=== PATIENT | male | born 1970 | race Caucasian/White ===

== ENCOUNTER 2018-08-17 13:02 | Inpatient (IN) | payer OTHER ==
[2018-08-17 13:40] VITALS: BMI 32.1
--- NOTE | 2018-08-17 15:50 | HP ---
COWS - Scale Resting Pulse: 0= [place] 80 or Below Sweatin= Chills/Flushing Restless Observation: 1= Difficult to Sit Still Pupil Size: 1= Pupils >than Normal Bone or Joint Aches: 2= Severe Diffuse Aches Runny Nose/ Eye Tearin= Runny Nose/Eyes GI Upset > 30mins: 2= Nausea/Diarrhea Tremor Observation: 2= Slight Tremor Visible Yawning Observation: 1= 1-2x During Session Anxiety or Irritability: 2=Irritable/Anxious Goose Flesh Skin: 0=Smooth Skin COWS Score: 14 CIWA Score Nausea/Vomitin Muscle Tremors: 2 Anxiety: 2 Agitation: 2 Paroxysmal Sweats: 1-Minimal Palms Moist Orientation: 0-Oriented Tacttile Disturbances: 1-Very Mild Itch/Numbness Auditory Disturbances: 1-Very Mild Visual Disturbances: 0-None Headache: 2-Mild CIWA-Ar Total Score: 13 - Admission Criteria [facility] Guidelines: Admission for Medically Managed Detox: Requires at least one of the followin. CIWA greater than 12 2. Seizures within the past 24 hours 3. Delirium tremens within the past 24 hours 4. Hallucinations within the past 24 hours 5. Acute intervention needed for co occurring medical disorder 6. Acute intervention needed for co occurring psychiatric disorder 7. Severe withdrawal that cannot be handled at a lower level of care (continued vomiting, continued diarrhea, abnormal vital signs) requiring intravenous medication and/or fluids 8. Admission ROS [facility] Chief Complaint: i need help for stoping street methadone,alcohol and xanax,i did not want to Allergies/Adverse Reactions: Allergies Allergy/AdvReac Type Severity Reaction Status Date / Time No Known Allergies Allergy Verified 08/17/18 15:23 History of Present Illness: this 48 years old male with street methadone,xanax and alcohol dependence, seeking detox,withdrawal symptom,last detox 2016 ,did not recall the facility history of old mi in 2013 on baby aspirin history of hypertension and hypercholesterolemia ,arthritis , low back pain herniated disc kidney stones fracture of left 5th finger ,s/p surgery,flexion deformity left 5th finger plan to go to rehab after - Ebola screening Have you traveled outside of the country in the last 21 days: No Have you had contact with anyone from an Ebola affected area: No Have you been sick,other than usual withdrawal symptoms: No Do you have a fever: No - Review of Systems Constitutional: Chills, Malaise, Night Sweats, Changes in sleep, Weakness EENT: reports: Tearing, Nose Congestion Respiratory: reports: No Symptoms reported Cardiac: reports: No Symptoms Reported, Other (old mi in 2013) GI: reports: Diarrhea, Nausea, Vomiting, Abdominal cramping : reports: No Symptoms Reported Musculoskeletal: reports: Back Pain, Joint Pain, Muscle Pain, Joint Stiffness Integumentary: reports: Dryness Neuro: reports: Headache, Tremors Endocrine: reports: No Symptoms Reported Hematology: reports: No Symptoms Reported Psychiatric: reports: No Sypmtoms Reported, Judgement Intact, Mood/Affect Appropiate, Orientated x3 Patient History - Patient Medical History Hx Anemia: No Hx Asthma: No Hx Chronic Obstructive Pulmonary Disease (COPD): No Hx Cancer: No Hx Cardiac Disorders: No Hx Congestive Heart Failure: No Hx Hypertension: Yes (no med) Hx Hypercholesterolemia: Yes Hx Pacemaker: No HX Cerebrovascular Accident: No Hx Seizures: No Hx Dementia: No Hx Diabetes: No Hx Gastrointestinal Disorders: No Hx Liver Disease: No Hx Genitourinary Disorders: No Hx Sexually Transmitted Disorders: No Hx Renal Disease (ESRD): No Hx Thyroid Disease: No Hx Human Immunodeficiency Virus (HIV): No (2017 negative ) Hx Hepatitis C: No Hx Depression: No Hx Suicide Attempt: No Hx Bipolar Disorder: No Hx Schizophrenia: No Other Medical History: no suicidal,no homicidal - Patient Surgical History Past Surgical History: No Hx Neurologic Surgery: No Hx Cataract Extraction: No Hx Cardiac Surgery: No Hx Lung Surgery: No Hx Breast Surgery: No Hx Breast Biopsy: No Hx Abdominal Surgery: No Hx Appendectomy: No Hx Cholecystectomy: No Hx Genitourinary Surgery: No Hx Section: No Hx Orthopedic Surgery: Yes (for fx of left 5th finger with flexion deformity in 2015) Anesthesia Reaction: No - PPD History Previous Implant?: Yes Documented Results: Negative w/o proof Implanted On Prior [facility] Admission?: No PPD to be Administered?: Yes - Smoking Cessation Smoking history: Current every day smoker Have you smoked in the past 12 months: Yes Aproximately how many cigarettes per day: 20 Hx Chewing Tobacco Use: No Initiated information on smoking cessation: Yes 'Breaking Loose' booklet given: 08/17/18 - Substance & Tx. History Hx Alcohol Use: Yes Hx Substance Use: Yes Substance Use Type: Alcohol, Opiates, Tranquilizers - Substances Abused Alprazolam (Xanax) Route: Oral Frequency: Daily Amount used: 22MG Age of first use: 38 Date of Last Use: 08/16/18 Non-Rx Methadone Route: Oral Frequency: 1-2 times per week Amount used: 75MG Age of first use: 43 Date of Last Use: 08/15/18 Alcohol Route: Oral Frequency: 3-6 times per week Amount used: 7-8 beers 5 shots whiskey Age of first use: 15 Date of Last Use: 08/16/18 Family Disease History - Family Disease History Family History: Denies Admission Physical Exam [facility] - Vital Signs Vital Signs: Vital Signs - 24 hr 08/17/18 13:39 Temperature 96.6 F L Pulse Rate 78 Respiratory 18 Rate Blood Pressure 135/73 - Physical General Appearance: Yes: Moderate Distress, Tremorous, Irritable, Sweating, Anxious HEENTM: Yes: Normal ENT Inspection, VASILIY, Pharynx Normal Respiratory: Yes: Lungs Clear, Normal Breath Sounds, No Respiratory Distress Neck: Yes: Within Normal Limits, Supple, Trachea in good position Breast: Yes: Within Normal Limits Cardiology: Yes: Within Normal Limits, Regular Rhythm, Regular Rate, S1, S2 Abdominal: Yes: Within Normal Limits, Normal Bowel Sounds, Non Tender, Flat, Soft Genitourinary: Yes: Within Normal Limits Back: Yes: Muscle Spasm Musculoskeletal: Yes: full range of Motion, Back pain, Joint Stiffness, Muscle Pain Extremities: Yes: Tremors Neurological: Yes: residential glazier II-XII NML intact, Alert, Motor Strength 5/5 Integumentary: Yes: Dry Lymphatic: Yes: Within Normal Limits - Diagnostic (1) Opioid dependence with withdrawal Current Visit: Yes Status: Acute (2) Uncomplicated sedative, hypnotic, or anxiolytic withdrawal Current Visit: Yes Status: Acute (3) Alcohol dependence with uncomplicated withdrawal Current Visit: Yes Status: Acute (4) Nicotine dependence Current Visit: Yes Status: Acute (5) Old ND (myocardial infarction) Current Visit: Yes Status: Acute (6) Kidney stones Current Visit: Yes Status: Acute (7) Arthritis Current Visit: Yes Status: Acute (8) Low back pain Current Visit: Yes Status: Acute (9) Herniated disc Current Visit: Yes Status: Acute Cleared for Admission [facility] - Detox or Rehab [facility] Level of Care: Medically Managed Detox Regimen/Protocol: Methadone/Valium [facility] Breath Alcohol Content Breath Alcohol Content: 0 Urine Drug Screen - Results Drug Screen Negative: No Urine Drug Screen Results: BAR-Barbiturates, BZO-Benzodiazepines, MTD-Methadone
[2018-08-17] MEDS ORDERED: ACETAMINOPHEN 325 MG TABLET (FP) PO PRN (16:21)
[2018-08-17] MEDS ORDERED: MAGNESIUM CITRATE 300 ML BOTTLE PO PRN (16:21)
[2018-08-17] MEDS ORDERED: LOPERAMIDE HCL 2 MG CAPSULE PO PRN (16:21)
[2018-08-17] MEDS ORDERED: hydrOXYzine PAMOATE 25 MG CAPSULE (FP) PO PRN (16:21)
[2018-08-17] MEDS ORDERED: MAG HYDROX/AL HYDROX/SIMETH 30 ML UNIT-DOSE CUP PO PRN (16:21)
[2018-08-17] MEDS ORDERED: MAGNESIUM HYDROX 2400MG/30ML ORAL SUSPENSION 30 ML CUP PO PRN (16:21)
[2018-08-17] MEDS ORDERED: MENTHOL/PHENOL 1 EACH UD MM PRN (16:21)
[2018-08-17] MEDS ORDERED: guaiFENesin/D-METHORPHAN HB 10 ML UNIT-DOSE CUPS PO PRN (16:21)
[2018-08-17] MEDS ORDERED: P-EPHED 60MG/TRIPROLIDI 2.5MG TABLET PO PRN (16:21)
[2018-08-17] MEDS ORDERED: METHADONE HCL 10 MG TABLET (FOR DETOX USE ONLY) PO ONE ×2 (17:00→23:00)
[2018-08-17] MEDS ORDERED: diazePAM 5 MG TABLET PO ONE (17:00)
[2018-08-17] MEDS: NICOTINE 21 MG/24 HOURS TOPICAL PATCH TD SCH (17:27)
[2018-08-17] MEDS: IBUPROFEN 400 MG TABLET (FP) PO PRN (21:07)
[2018-08-17] MEDS: diazePAM 5 MG TABLET PO SCH (22:18)
[2018-08-17] MEDS: THIAMINE HCL 100 MG TABLET (FP) PO SCH (22:18)
[2018-08-17 22:28] LABS: URINE APPEARANCE CLEAR; URINE BILIRUBIN NEGATIVE (<2.0 mg/dL); URINE COLOR YELLOW; URINE GLUCOSE (UA) NEGATIVE (NEGATIVE); URINE KETONE NEGATIVE (NEGATIVE); URINE LEUK ESTERASE NEGATIVE (NEGATIVE); URINE NITRITE NEGATIVE (NEGATIVE); URINE PROTEIN NEGATIVE (NEGATIVE); URINE UROBILINOGEN NEGATIVE mg/dL (0.2-1.0)
[2018-08-17] MEDS: MELATONIN 5 MG TABLETS PO PRN (23:22)
[2018-08-18] MEDS: diazePAM 5 MG TABLET PO SCH ×3 (05:48→22:33)
[2018-08-18] MEDS ORDERED: METHADONE HCL 10 MG TABLET (FOR DETOX USE ONLY) PO SCH (10:00)
[2018-08-18] MEDS: ASPIRIN 81 MG CHEWABLE TABLETS PO SCH (10:06)
[2018-08-18] MEDS: PRENATAL VITAMINS W/ FOLIC ACID TABLET (FP) PO SCH (10:06)
[2018-08-18] MEDS: NICOTINE 21 MG/24 HOURS TOPICAL PATCH TD SCH (10:07)
[2018-08-18 10:44] LABS: HEMATOCRIT 32.2 % (35.4-49); HEMOGLOBIN 9.9 GM/dL (11.7-16.9); MCH 23.4 pg (25.7-33.7); MCHC 30.6 g/dl (32.0-35.9); MEAN CELL VOLUME 76.3 fl (80-96); MEAN PLT VOLUME 8.5 fl (7.5-11.1); PLATELET COUNT 265 K/MM3 (134-434); RBC 4.22 M/mm3 (4.00-5.60); WHITE BLOOD COUNT 4.6 K/mm3 (4.0-10.0)
[2018-08-18 11:34] LABS: ALBUMIN 3.1 g/dl (3.4-5.0); ALK PHOS 157 U/L (45-117); ANION GAP 7 MMOL/L (8-16); BILIRUBIN,TOTAL 0.1 mg/dL (0.2-1); BLOOD UREA NITROGEN 12 mg/dL (7-18); CALCIUM 8.5 mg/dL (8.5-10.1); CHLORIDE 107 mmol/L (98-107); CO2 27 mmol/L (21-32); CREATININE 0.7 mg/dL (0.55-1.3); GLUCOSE,RANDOM 81 mg/dL (74-106); POTASSIUM 3.9 mmol/L (3.5-5.1); SGOT/AST 12 U/L (15-37); SGPT/ALT 19 U/L (13-61); SODIUM 141 mmol/L (136-145); TOT PROT 6.3 g/dl (6.4-8.2)
[2018-08-18] MEDS: diazePAM 5 MG TABLET PO PRN ×2 (14:54→19:26)
--- NOTE | 2018-08-18 15:14 | PN ---
[facility] CIWA - CIWA Score Nausea/Vomitin Muscle Tremors: 4-Moderate,w/Arms Extend Anxiety: 4-Mod. Anxious/Guarded Agitation: 4-Moderately Restless Paroxysmal Sweats: 3 Orientation: 0-Oriented Tacttile Disturbances: 0-None Auditory Disturbances: 0-None Visual Disturbances: 0-None Headache: 0-None Present CIWA-Ar Total Score: 17 [facility] COWS - Scale Resting Pulse: 1= [place] 81-100 Sweatin= Chills/Flushing Restless Observation: 3= Extraneous Movement Pupil Size: 0= Normal to Room Light Bone or Joint Aches: 2= Severe Diffuse Aches Runny Nose/ Eye Tearin= Runny Nose/Eyes GI Upset > 30mins: 3= Vomiting/Diarrhea Tremor Observation of Outstretched Hands: 2= Slight Tremor Visible Yawning Observation: 1= 1-2x During Session Anxiety or Irritability: 2=Irritable/Anxious Goose Flesh Skin: 0=Smooth Skin COWS Score: 17 [facility] Progress Note (SOAP) Subjective: Anxious, restless, interrupted sleep, nausea. Patient requesting to see psychiatrist because his psych meds not helping him to sleep. Objective: 08/18/18 15:13 Last Vital Signs Temp Pulse Resp BP Pulse Ox 99 F 98 H 18 142/84 08/18/18 13:47 08/18/18 13:47 08/18/18 13:47 08/18/18 13:47 Laboratory Tests 08/17/18 08/18/18 08/18/18 22:00 07:00 07:00 WBC 4.6 RBC 4.22 Hgb 9.9 L Hct 32.2 L MCV 76.3 L MCH 23.4 L MCHC 30.6 L RDW 19.0 H Plt Count 265 MPV 8.5 Sodium 141 Potassium 3.9 Chloride 107 Carbon Dioxide 27 Anion Gap 7 L BUN 12 Creatinine 0.7 Creat Clearance w eGFR > 60 Random Glucose 81 Calcium 8.5 Total Bilirubin 0.1 L AST 12 L ALT 19 Alkaline Phosphatase 157 H Total Protein 6.3 L Albumin 3.1 L Urine Color Yellow Urine Appearance Clear Urine pH 5.0 Ur Specific [place] 1.032 Urine Protein Negative Urine Glucose (UA) Negative Urine Ketones Negative Urine Blood Negative Urine Nitrite Negative Urine Bilirubin Negative Urine Urobilinogen Negative Ur Leukocyte Esterase Negative Labs reviewed Assessment: 08/18/18 15:14 Withdrawal symptoms Plan: Continue detox Encouraged PO water intake
[2018-08-18] MEDS: IBUPROFEN 400 MG TABLET (FP) PO PRN ×2 (15:31→22:33)
[2018-08-18] MEDS: THIAMINE HCL 100 MG TABLET (FP) PO SCH (22:32)
[2018-08-19] MEDS: PRENATAL VITAMINS W/ FOLIC ACID TABLET (FP) PO SCH (10:10)
[2018-08-19] MEDS: ASPIRIN 81 MG CHEWABLE TABLETS PO SCH (10:10)
[2018-08-19] MEDS: METHADONE HCL 5 MG TABLET (FOR DETOX USE ONLY) PO SCH (10:11)
[2018-08-19] MEDS: diazePAM 5 MG TABLET PO SCH ×2 (10:11→22:30)
[2018-08-19] MEDS: NICOTINE 21 MG/24 HOURS TOPICAL PATCH TD SCH (10:12)
--- NOTE | 2018-08-19 14:03 | PN ---
S CIWA - CIWA Score Nausea/Vomitin Muscle Tremors: 3 Anxiety: 3 Agitation: 3 Paroxysmal Sweats: 3 Orientation: 0-Oriented Tacttile Disturbances: 1-Very Mild Itch/Numbness Auditory Disturbances: 0-None Visual Disturbances: 0-None Headache: 0-None Present CIWA-Ar Total Score: 15 [facility] COWS - Scale Resting Pulse: 1= [place] 81-100 Sweatin= Chills/Flushing Restless Observation: 3= Extraneous Movement Pupil Size: 0= Normal to Room Light Bone or Joint Aches: 2= Severe Diffuse Aches Runny Nose/ Eye Tearin= Runny Nose/Eyes GI Upset > 30mins: 1= Stomach Cramp Tremor Observation of Outstretched Hands: 2= Slight Tremor Visible Yawning Observation: 0= None Anxiety or Irritability: 2=Irritable/Anxious Goose Flesh Skin: 0=Smooth Skin COWS Score: 14 [facility] Progress Note (SOAP) Subjective: Vomiting, agitated, interrupted sleep, anxious Objective: 08/19/18 13:59 Last Vital Signs Temp Pulse Resp BP Pulse Ox 97.4 F L 82 18 141/78 08/19/18 09:16 08/19/18 09:16 08/19/18 09:16 08/19/18 09:16 Elevated b/p, 141/78 (has htn, not on med) Laboratory Tests 08/17/18 08/18/18 08/18/18 22:00 07:00 07:00 WBC 4.6 RBC 4.22 Hgb 9.9 L Hct 32.2 L MCV 76.3 L MCH 23.4 L MCHC 30.6 L RDW 19.0 H Plt Count 265 MPV 8.5 Sodium 141 Potassium 3.9 Chloride 107 Carbon Dioxide 27 Anion Gap 7 L BUN 12 Creatinine 0.7 Creat Clearance w eGFR > 60 Random Glucose 81 Calcium 8.5 Total Bilirubin 0.1 L AST 12 L ALT 19 Alkaline Phosphatase 157 H Total Protein 6.3 L Albumin 3.1 L Urine Color Yellow Urine Appearance Clear Urine pH 5.0 Ur Specific [place] 1.032 Urine Protein Negative Urine Glucose (UA) Negative Urine Ketones Negative Urine Blood Negative Urine Nitrite Negative Urine Bilirubin Negative Urine Urobilinogen Negative Ur Leukocyte Esterase Negative RPR Titer 08/18/18 07:00 WBC RBC Hgb Hct MCV MCH MCHC RDW Plt Count MPV Sodium Potassium Chloride Carbon Dioxide Anion Gap BUN Creatinine Creat Clearance w eGFR Random Glucose Calcium Total Bilirubin AST ALT Alkaline Phosphatase Total Protein Albumin Urine Color Urine Appearance Urine pH Ur Specific [place] Urine Protein Urine Glucose (UA) Urine Ketones Urine Blood Urine Nitrite Urine Bilirubin Urine Urobilinogen Ur Leukocyte Esterase RPR Titer Nonreactive Labs reviewed Assessment: 08/19/18 14:01 Withdrawal symptoms Noted with elevated b/p, has htn Plan: Continue detox Encouraged PO water intake HTN: start clonidine 0.1mg PO q8hr prn if b/p > 140/90
[2018-08-19] MEDS ORDERED: cloNIDine HCL 0.1 MG TABLET PO PRN (14:06)
[2018-08-19] MEDS: THIAMINE HCL 100 MG TABLET (FP) PO SCH (22:30)
[2018-08-19] MEDS: IBUPROFEN 400 MG TABLET (FP) PO PRN (22:30)
[2018-08-19] MEDS: MELATONIN 5 MG TABLETS PO PRN (22:31)
[2018-08-20] MEDS ORDERED: ACETAMINOPHEN/CAFFEINE/BUTALBITAL 1 TAB PO PRN ×2 (09:35→09:38)
[2018-08-20] MEDS ORDERED: ACETAMINOPHEN 325 MG TABLET (FP) PO PRN (10:05)
[2018-08-20] MEDS: diazePAM 5 MG TABLET PO SCH ×2 (10:40→23:00)
[2018-08-20] MEDS: METHADONE HCL 5 MG TABLET (FOR DETOX USE ONLY) PO SCH (10:40)
[2018-08-20] MEDS: PRENATAL VITAMINS W/ FOLIC ACID TABLET (FP) PO SCH ×2 (10:40→10:43)
[2018-08-20] MEDS: ASPIRIN 81 MG CHEWABLE TABLETS PO SCH ×2 (10:41→10:42)
[2018-08-20] MEDS: NICOTINE 21 MG/24 HOURS TOPICAL PATCH TD SCH (10:42)
--- NOTE | 2018-08-20 13:30 | PN ---
[facility] Progress Note Note: PATIENT C/O MIGRAINE HEADACHES, ANXIETY AND RESTLESSNESS. Vital Signs Temperature 96.2 F L 08/20/18 06:25 Pulse Rate 65 08/20/18 06:25 Respiratory Rate 18 08/20/18 06:25 Blood Pressure 119/68 08/20/18 06:25 O2 Sat by Pulse Oximetry (%) Laboratory Tests 08/17/18 08/18/18 08/18/18 22:00 07:00 07:00 WBC 4.6 RBC 4.22 Hgb 9.9 L Hct 32.2 L MCV 76.3 L MCH 23.4 L MCHC 30.6 L RDW 19.0 H Plt Count 265 MPV 8.5 Sodium 141 Potassium 3.9 Chloride 107 Carbon Dioxide 27 Anion Gap 7 L BUN 12 Creatinine 0.7 Creat Clearance w eGFR > 60 Random Glucose 81 Calcium 8.5 Total Bilirubin 0.1 L AST 12 L ALT 19 Alkaline Phosphatase 157 H Total Protein 6.3 L Albumin 3.1 L Urine Color Yellow Urine Appearance Clear Urine pH 5.0 Ur Specific [place] 1.032 Urine Protein Negative Urine Glucose (UA) Negative Urine Ketones Negative Urine Blood Negative Urine Nitrite Negative Urine Bilirubin Negative Urine Urobilinogen Negative Ur Leukocyte Esterase Negative RPR Titer 08/18/18 07:00 WBC RBC Hgb Hct MCV MCH MCHC RDW Plt Count MPV Sodium Potassium Chloride Carbon Dioxide Anion Gap BUN Creatinine Creat Clearance w eGFR Random Glucose Calcium Total Bilirubin AST ALT Alkaline Phosphatase Total Protein Albumin Urine Color Urine Appearance Urine pH Ur Specific [place] Urine Protein Urine Glucose (UA) Urine Ketones Urine Blood Urine Nitrite Urine Bilirubin Urine Urobilinogen Ur Leukocyte Esterase RPR Titer Nonreactive PE: ALERT AND ORIENTED X 3 SKIN WARM AND DRY EXT NO TREMORS, FULL ROM AMB AD GEOVANNA ANXIOUS AND RESTLESS A/P WITHDRAWAL SX CONTINUE DETOX ENCOURAGE FLUIDS PATIENT EXTERNAL MED HX SHOW GABAPENTIN AND FIORCET WHICH PT STATES HE GETS FOR MIGRAINES GABAPENTIN ORDERED CONTINUE TO MONITOR
[2018-08-20] MEDS: GABAPENTIN 300 MG CAPSULE (FP) PO SCH ×2 (15:21→23:00)
[2018-08-20] MEDS: THIAMINE HCL 100 MG TABLET (FP) PO SCH (23:00)
[2018-08-21 06:36] VITALS: BP 120/68; PULSE 60; TEMP 97.1
[2018-08-21] MEDS: GABAPENTIN 300 MG CAPSULE (FP) PO SCH (07:13)
[2018-08-21] MEDS ORDERED: diazePAM 5 MG TABLET PO SCH (10:00)
[2018-08-21] MEDS ORDERED: METHADONE HCL 10 MG TABLET (FOR DETOX USE ONLY) PO SCH (10:00)
[2018-08-21] MEDS: NICOTINE 21 MG/24 HOURS TOPICAL PATCH TD SCH (10:18)
[2018-08-21] MEDS: ASPIRIN 81 MG CHEWABLE TABLETS PO SCH (10:18)
[2018-08-21] MEDS: PRENATAL VITAMINS W/ FOLIC ACID TABLET (FP) PO SCH (10:18)
--- NOTE | 2018-08-21 11:40 | PN ---
S Progress Note (SOAP) Subjective: Requesting to leave today Not giving reason for request Only states "I just want to leave" Objective: 08/21/18 11:38 A & O x 3 Anxious, agitated No acute distress noted Assessment: 08/21/18 11:39 withdrawal sx Not receptive to advise to complete detox Plan: Will leave against medical advice
--- NOTE | 2018-08-21 11:48 | DS ---
[facility] Detox Discharge Summary Admission Date: 08/17/18 Discharge Date: 08/21/18 - History Additional Comments: pt's actual d/c date is tomorrow Pt requesting to leave today " i just want to leave now" Appears flushed and anxious Not receptive to education to complete detox Requesting gabapentin and fiorecet prescriptions Pt's last prescription of fiorecet was picked up on 07/22/18 for a 30 day supply. When checked with [facility], pt was said to have picked up a 30 days supply of 90 tabs on 07/31/18 Pt was encouraged to see his PCP for the fiorecet rx. Gabapentin, Narcan and ASA sent to [facility]; pt verbalized understanding. Pt will sign out AMA - Physical Exam Results Vital Signs: Vital Signs Temperature 97.1 F L 08/21/18 06:35 Pulse Rate 60 08/21/18 06:35 Respiratory Rate 20 08/21/18 06:35 Blood Pressure 120/68 08/21/18 06:35 O2 Sat by Pulse Oximetry (%) Pertinent Admission Physical Exam Findings: withdrawal sx - Medication Discharge Medications: Ambulatory Orders Aspirin [ASA -] 81 mg PO DAILY #30 tab.chew 08/21/18 Gabapentin [Neurontin -] 300 mg PO TID #90 capsule 08/21/18 Naloxone HCl [Narcan] 4 mg NS PRN #1 spray 08/21/18 - Diagnosis (1) Opioid dependence with withdrawal Current Visit: Yes Status: Acute (2) Uncomplicated sedative, hypnotic, or anxiolytic withdrawal Current Visit: Yes Status: Acute (3) Arthritis Current Visit: Yes Status: Chronic (4) HTN (hypertension) Current Visit: Yes Status: Chronic (5) Low back pain Current Visit: Yes Status: Chronic (6) Migraine headache Current Visit: No Status: Acute (7) Alcohol dependence with uncomplicated withdrawal Current Visit: Yes Status: Acute (8) Nicotine dependence Current Visit: Yes Status: Chronic - AMA Did Patient Leave Against Medical Advice: Yes
[2018-08-22] MEDS ORDERED: METHADONE HCL 5 MG TABLET (FOR DETOX USE ONLY) PO SCH (06:00)
== END 2018-08-21 11:55 | disposition left against medical advice (07) | DRG 770 ==
LOC: YASAS 13:02 → Y3N 16:01
PROVIDERS: ADMIT Neuromusculoskeletal Medicine & OMM; ATTEND Neuromusculoskeletal Medicine & OMM
PROC: HZ2ZZZZ Detoxification Services for Substance Abuse Treatment (ICD-10-PCS; principal; 2018-08-17)
DX: F11.23 Opioid dependence with withdrawal (principal); F10.230 Alcohol dependence with withdrawal, uncomplicated; F13.230 Sedative, hypnotic or anxiolytic dependence with withdrawal, uncomplicated; F17.210 Nicotine dependence, cigarettes, uncomplicated; I25.10 Atherosclerotic heart disease of native coronary artery without angina pectoris; I25.2 Old myocardial infarction; I10 Essential (primary) hypertension; G43.909 Migraine, unspecified, not intractable, without status migrainosus; M12.9 Arthropathy, unspecified; M54.5 Low back pain; N20.0 Calculus of kidney; Z79.82 Long term (current) use of aspirin; Z87.81 Personal history of (healed) traumatic fracture; Z87.39 Personal history of other diseases of the musculoskeletal system and connective tissue
CPT/HCPCS: 36415; 80053; 81003; 85027; 86593; J0735

== ENCOUNTER 2018-12-11 21:23 | Observation (INO) | payer OTHER ==
[2018-12-11 21:26] VITALS: BMI 34.4
[2018-12-11] MEDS ORDERED: ASPIRIN 81 MG CHEWABLE TABLETS PO ONE (21:36)
--- NOTE | 2018-12-11 21:47 | PDOC ---
Attending Attestation - HPI HPI: 12/11/18 22:20 The patient is a 48 year old male, with a significant PMH of CAD s/p UT 2012, hypertension, hyperlipidemia, CVA, arthritis, chronic low back pain, kidney stones and polysubstance abuse, who presents to the emergency department with 2 hours of left sided chest pain. The patient states the left sided chest pain radiates to the left neck and left arm, with associated shortness of breath, sweating, headache and nausea without vomiting. The patient states he took nitroglycerin with slight relief. The patient also reports taking a baby aspirin this morning. Denies fever, chills, vomit, diarrhea and constipation. Denies dysuria, frequency, urgency and hematuria. Allergies: NKA Documentation prepared by Geovany Ventura, acting as medical support specialist for Maricarmen Erwin MD. - Physicial Exam PE: 12/11/18 23:31 GENERAL: Awake, alert, and fully oriented, in no acute distress HEAD: No signs of trauma EYES: PERRLA, EOMI, sclera anicteric, conjunctiva clear ENT: Auricles normal inspection, hearing grossly normal, nares patent, oropharynx clear without exudates. Moist mucosa NECK: Normal ROM, supple, no lymphadenopathy, JVD, or masses LUNGS: Breath sounds equal, clear to auscultation bilaterally. No wheezes, and no crackles HEART: Regular rate and rhythm, normal S1 and S2, no murmurs, rubs or gallops CHEST: No pain on chest wall with palpation. ABDOMEN: Soft, nontender, normoactive bowel sounds. No guarding, no rebound. No masses EXTREMITIES: Normal range of motion, no edema. No clubbing or cyanosis. No cords, erythema, or tenderness NEUROLOGICAL: Cranial nerves II through XII grossly intact. Normal speech, normal gait SKIN: Old scar on right forearm. Warm, Dry, normal turgor, no rashes or lesions noted. <Geovany Ventura - Last Filed: 12/11/18 23:31> - Resident Resident Name: Joycelyn Cornell - ED Attending Attestation I have performed the following: I have examined & evaluated the patient, The case was reviewed & discussed with the resident, I agree w/resident's findings & plan - Medical Decision Making 12/12/18 06:30 PT WILL BE ADMITTED FOR CHEST PAIN. HE HAS A HEART SCORE OF 5 ALSO COCAINE POSITIVE. ADMITTED TO TELE OBSERVATION. <Maricarmen Erwin - Last Filed: 12/12/18 06:30>
[2018-12-11] MEDS ORDERED: ASPIRIN 81 MG CHEWABLE TABLETS ONE (22:03)
--- NOTE | 2018-12-11 22:13 | PDOC ---
History of Present Illness - General Chief Complaint: Chest Pain Stated Complaint: CHEST PAIN Time Seen by Provider: 12/11/18 21:46 - History of Present Illness Initial Comments: Tor García is a 48yo man with a PMH of CAD s/p HI s/p 2x stents (2012), s/ p CVA 7 years ago, HTN, HLD, arthritis, chronic back pain, kidney stones, polysubstance abuse (street methadone, xanax, alcohol), current PPD smoker who presents with left-sided chest pain. He states that the pain radiates to the L arm and L neck and feels tight. He endorses associated with nausea and sweating , though he has not had any vomiting or shortness of breath. The episode started about 2.5hrs ago. Mr García stated that he took 4x baby aspirin this morning, so he did not take any additional when the pain started. He also took some nitro that he had at home with a slight improvement in the past. However, he now has a migraine headache with photophobia and requests medication for the migraine. He states that he currently smokes a pack per day. He has no primary doctor, and his medications were most recently filled at urgent care. Past History - Past Medical History Allergies/Adverse Reactions: Allergies Allergy/AdvReac Type Severity Reaction Status Date / Time No Known Allergies Allergy Verified 08/17/18 15:23 Home Medications: Ambulatory Orders Acetaminophen/Caffeine/Butalb [Fioricet -] 1 tab PO Q6H 12/12/18 Atorvastatin Ca [Lipitor] 40 mg PO HS 12/12/18 Metoprolol Tartrate [Lopressor] 100 mg PO DAILY 12/12/18 Anemia: No Asthma: No Cancer: No Cardiac Disorders: No CVA: No COPD: No CHF: No Dementia: No Diabetes: No GI Disorders: No Disorders: No HTN: Yes (no med) Hypercholesterolemia: Yes Kidney Stones: Yes (tx in 2010 R side) Liver Disease: No Seizures: No Thyroid Disease: No - Surgical History Abdominal Surgery: No Appendectomy: No Cardiac Surgery: No Cholecystectomy: No Lung Surgery: No Neurologic Surgery: No Orthopedic Surgery: Yes (for fx of left 5th finger with flexion deformity in 2014) - Reproductive History Testicular Surgery: No - Suicide/Smoking/Psychosocial Hx Smoking History: Smoker current status UNK Have you smoked in the past 12 months: Yes Number of Cigarettes Smoked Daily: 20 'Breaking Loose' booklet given: 08/17/18 Hx Alcohol Use: No Drug/Substance Use Hx: No Substance Use Type: Alcohol, Opiates, Tranquilizers Hx Substance Use Treatment: Yes Review of Systems - Review of Systems Comments:: General: No fevers, no chills, no weight or appetite change, no malaise HEENT: No changes in vision, no changes in hearing, no congestion, no sore throat CV: +Chest pain, no palpitations, no LE edema Pulm: No SOB, no cough, no wheezing GI: +nausea. No vomiting, no change in bowel habits, no melena : No frequency, no urgency, no dysuria Musc: No back pain, no joint swelling, no recent injury Skin: No rash, no lesions, no erythema Endo: No excessive thirst, no heat/cold intolerance Heme: No unusual bruising or bleeding, no swollen glands Neuro: No syncope, no numbness/tingling, no focal weakness Vasc: No claudication Psych: No recent change in mood, no SI or HI *Physical Exam - Vital Signs Last Vital Signs Temp Pulse Resp BP Pulse Ox 98.8 F 74 20 148/84 99 12/11/18 21:24 12/11/18 21:24 12/11/18 21:24 12/11/18 21:24 12/11/18 21:24 - Physical Exam Comments: General: Comfortable, no acute distress HEENT: PERRL, EOMI, MMM, voice normal, normal neck ROM, no LAD Cards: RRR, no murmur appreciated Pulm: Comfortable on room air, clear to auscultation bilaterally Abd: Soft, nontender, nondistended Ext: Atraumatic. No LE edema. ROM intact. Vasc: Extremities WWP. Skin: Normal color, no rashes or lesions Neuro: A&Ox3, CN grossly intact, normal speech, motor/sensory grossly intact and symmetric Psych: Mood appropriate to situation Moderate Sedation - Procedure Monitoring Vital Signs: Procedure Monitoring Vital Signs Temperature 98.8 F 12/11/18 21:24 Pulse Rate 74 12/11/18 21:24 Respiratory Rate 20 12/11/18 21:24 Blood Pressure 148/84 12/11/18 21:24 O2 Sat by Pulse Oximetry (%) 99 12/11/18 21:24 Heart Score/ECG Review - History History: Highly suspicious - Electrocardiogram EKG: Normal - Age Age: 45-65 - Risk Factors Risk Factors Heart Score: Yes Hx Hypercholesterolemia, Yes Hx Hypertension, Yes Smoking History, Yes Hx Obesity Based on the list above the patient has:: >/=3 risk factors or Hx atherosclerotic disease - Troponin Troponin: </= normal limit - Score Heart Score - Total: 5 ED Treatment Course - LABORATORY CBC & Chemistry Diagram: 12/11/18 23:10 12/11/18 23:10 Medical Decision Making - Medical Decision Making 12/11/18 21:48 Tor García is a 48yo man with a PMH of CAD s/p HI s/p 2x stents (2012), s/ p CVA 7 years ago, HTN, HLD, arthritis, chronic back pain, kidney stones, polysubstance abuse (street methadone, xanax, alcohol) who presents with left- sided chest pain that radiates to the L arm and L neck, associated with nausea and sweating, starting 2.5hrs ago. The pain improved somewhat with nitro at home , but he now reports a "severe migraine." - Need to r/o HI. Could also be secondary to migraine, musculoskeletal, aortic dissection or aneurysm, or pulmonary though this is less likely as he has no respiratory complaints. - Labs including CBC, chemistry, coags, trop ordered in E - EKG completed. NSR s/ HR 86, no concerning ST changes - CXR to be completed 12/11/18 22:51 - Difficult stick. Cannot locate US in the ED. Trying to locate. 12/12/18 00:00 - IV placed by Dr Garnica. - Following - Labs completed, reveiewed. No conerning abnormalities. Trop negative - Will need repeat trop at 3hrs - To xray for CXR 12/12/18 00:36 - Heart score 5, will need obs admission. Microblog sent - Repeat trop at 2am 12/12/18 01:42 - Spoke to Dr Ardon for sign out. Will admit to Dr Mckinnon's service for tele obs - Will order repeat trop. Discussed with Dr Erwin. Joycelyn Cornell PGY1 *DC/Admit/Observation/Transfer Diagnosis at time of Disposition: Left-sided chest pain - Discharge Dispostion Decision to Admit order: Yes - Referrals - Patient Instructions - Post Discharge Activity
[2018-12-11] MEDS ORDERED: ACETAMINOPHEN 1000 MG/100 ML VIAL (NON FORMULARY) IVPB ONE (22:14)
[2018-12-11 23:20] LABS: BASO % 1.4 % (0-2.0); EOS % 8.5 % (0-4.5); HEMATOCRIT 33.7 % (35.4-49); HEMOGLOBIN 11.1 GM/dL (11.7-16.9); LYMPH % 22.5 % (8-40); MCH 25.1 pg (25.7-33.7); MCHC 32.9 g/dl (32.0-35.9); MEAN CELL VOLUME 76.3 fl (80-96); MEAN PLT VOLUME 8.1 fl (7.5-11.1); MONO % 7.1 % (3.8-10.2); NEUT % 60.5 % (42.8-82.8); PLATELET COUNT 289 K/MM3 (134-434); RBC 4.42 M/mm3 (4.00-5.60); RDW 17.7 % (11.9-15.9); WHITE BLOOD COUNT 6.1 K/mm3 (4.0-10.0)
[2018-12-11] MEDS ORDERED: morphine CARPU-JECT 2 MG/1 ML DISP.SYRIN IVPUSH ONE (23:22)
[2018-12-11 23:32] LABS: INR 0.91 (0.83-1.09); PROTHROMBIN TIME (PATIENT) 10.7 SEC (9.7-13.0)
[2018-12-11] MEDS ORDERED: ACETAMINOPHEN INJECTION 100 ML IVPB ONE (23:36)
[2018-12-11] MEDS ORDERED: MORPHINE SULFATE 2 MG/ML VIAL ONE (23:36)
[2018-12-11 23:55] LABS: BLOOD UREA NITROGEN 10 mg/dL (7-18); CHLORIDE 106 mmol/L (98-107); CO2 31 mmol/L (21-32); CREATININE 0.7 mg/dL (0.55-1.3); GLUCOSE,RANDOM 103 mg/dL (74-106); POTASSIUM 3.5 mmol/L (3.5-5.1); SODIUM 143 mmol/L (136-145)
[2018-12-11 23:56] LABS: ALBUMIN 3.4 g/dl (3.4-5.0); ALK PHOS 170 U/L (45-117); ANION GAP 6 MMOL/L (8-16); BILIRUBIN,TOTAL 0.1 mg/dL (0.2-1); CALCIUM 8.6 mg/dL (8.5-10.1); SGOT/AST 11 U/L (15-37); SGPT/ALT 28 U/L (13-61); TOT PROT 7.1 g/dl (6.4-8.2)
--- NOTE | 2018-12-12 01:32 | PN ---
Teaching Attending Note Name of Resident: Que Ardon ATTENDING PHYSICIAN STATEMENT I saw and evaluated the patient. I reviewed the resident's note and discussed the case with the resident. I agree with the resident's findings and plan as documented. SUBJECTIVE: Patient is a 48 year old man with a PMH of CAD s/p [place] s/p 2x stents (2012), s/p CVA 7 years ago, HTN, HLD, arthritis, chronic back pain, kidney stones, polysubstance abuse (street methadone, xanax, alcohol), current PPD smoker who presents with left-sided chest pain. He states that the pain radiates to the L arm and L neck and feels tight. He has associated with nausea and sweating, though he has not had any vomiting or shortness of breath. The episode started about 2.5hrs prior to arrival in the ER. He took 4 tablets of baby aspirin this morning, so he did not take any additional when the pain started. He also took some nitro that he had at home with a slight improvement in the past. However, he now has a migraine headache with photophobia and requests medication for the migraine. He states that he currently smokes a pack per day. He has no primary doctor, and his medications were most recently filled at urgent care. He denies fever, chills, vomit, diarrhea, constipation, dysuria, frequency, urgency or hematuria. He got Morphine 2 mg IV in the ER but says it didnot help his pain. He is with 3 children, lives at home and works as a sign writer letterer or painter. Denies any recent use of illicit drugs. OBJECTIVE: Alert; poor general hygiene Vital Signs Period Temp Pulse Resp BP Sys/[place] Pulse Ox Last 24 Hr 98.8 F 74 20 148/84 99 HEENT: No Jaundice, eye redness or discharge, PERRLA, EOMI. Normocephalic, atraumatic. External ears are normal and hearing is grossly intact. No nasal discharge. Neck: Supple, nontender. No palpable adenopathy or thyromegaly. No JVD Chest: Good effort. Clear to auscultation and percussion. Heart: Regular. No S3, rub or murmur Abdomen: Not distended, soft, nontender and no HSM. No rebound or guarding. Normal bowel sounds. Ext: Peripheral pulses intact. Edema on dorsum of feet. Skin: Warm and dry. No petechiae, rash or ecchymosis. Neuro: Alert. Oriented x3. No asterexis or tremors. CN 2-12 grossly intact. Sensation grossly intact in all four extremities and DTR are symmetric. Psych: Appropriate mood and affect. Good insight. Home Medications Medication Instructions Recorded Acetaminophen/Caffeine/Butalb 1 tab PO Q6H 12/12/18 [Fioricet -] Atorvastatin Ca [Lipitor] 40 mg PO HS 12/12/18 Metoprolol Tartrate [Lopressor] 100 mg PO DAILY 12/12/18 Abnormal Lab Results 12/11/18 12/11/18 23:10 23:10 Hgb 11.1 L Hct 33.7 L MCV 76.3 L MCH 25.1 L RDW 17.7 H Eosinophils % 8.5 H Anion Gap 6 L Total Bilirubin 0.1 L AST 11 L Alkaline Phosphatase 170 H ASSESSMENT AND PLAN: 1. Chest pain - Patient has significant risk factors for ACS. EKG is NSR with no significant ST-T wave changes and troponin is negative. Will admit to telemetry to rule out ACS, get ECHO and treat with IV Morphine 4 mg. Get fasting lipids, urine toxicology and consult cardiology. He does not know all his medications - Plavix or Aspirin not on his medication list. Will get complete list from his pharmacy, but will start him on plavix today and aspirin from tomorrow. If his pain persists after morphine, will treat with IV nitroglycerine. 2. Tobacco Use Counseled on risks associated with tobacco use. We will provide patient all the necessary assistance to facilitate smoking cessation and prescribe Nicotine patch. 3. Low MCV Anemia - Cause unclear. Will do basic anemia work up including serial stool guaiacs, reticulocyte count and iron studies. 4. Obesity Counseled on the risks associated with obesity. Will provide patient all the necessary assistance, counseling and positive reinforcement to facilitate weight loss. Consult retail shift supervisor. 5. Polysubstance/Alcohol abuse - Implement [facility] alcohol withdrawal protocol, neurochecks, seizure, fall and aspiration precautions. Treat with thiamine and folic acid and monitor electrolytes (Ca,Mg,K,P). Television Tube Inspector patient about abstaining from alcohol and illicit drugs. Consult client retention specialist and refer to alcohol/drug detox upon discharge. 6. Hypertension - Restart outpatient antihypertensive drugs and revise regimen to ensure smooth [id number] good BP control. Nonpharmacologic measures to control hypertension like weight loss, salt restriction and exercise discussed. 7. DVT prophylaxis - Lovenox 40 mg SQ q 24 hours. 8. Advance directives - Full code
[2018-12-12] MEDS ORDERED: ACETAMINOPHEN/CAFFEINE/BUTALBITAL 1 TAB PO ONE ×2 (02:01)
[2018-12-12] MEDS ORDERED: morphine SULFATE 4 MG/ML VIAL IVPUSH ONE (02:01)
[2018-12-12] MEDS ORDERED: morphine SULFATE 4 MG/ML VIAL ONE (02:16)
[2018-12-12] MEDS ORDERED: ACETAMINOPHEN/CAFFEINE/BUTALBITAL 1 TAB ONE (02:16)
--- NOTE | 2018-12-12 02:18 | HP ---
CHIEF COMPLAINT: chest pain PCP: none HISTORY OF PRESENT ILLNESS: Patient is a 48 y/o M w/ PMHx CAD s/p [place] s/p 2 stents (2012), CVA (7-8 y/a), HTN , HLD, arthritis, chronic back pain, kidney stones, polysubstance abuse, current PPD smoker, migraines, p/w sudden onset L-sided chest pain radiating to L arm and L neck beginning 2-3 hours prior to presentation, a/w nausea and diaphoresis, no vomiting, no dyspnea. Took some NTG that he had available from prior medical encounters with partial relief but pain recurred and is present upon encounter. Additionally c/o migraine w/ photophobia beginning prior to onset of chest pain and continuing at time of encounter. ROS otherwise negative. On presentation EKG is benign, initial troponin negative, chemistry wnl, has mild microcytic anemia. Given ASA 162, morphine, Ofirmev in ED. ER course was notable for: (1) EKG reassuring (2) troponin negative (3) Recent Travel: PAST MEDICAL HISTORY: As per HPI PAST SURGICAL HISTORY: Social History: Smoking: PPD Alcohol: h/o abuse Drugs: h/o abuse Family History: Allergies No Known Allergies Allergy (Verified 08/17/18 15:23) HOME MEDICATIONS: Home Medications Medication Instructions Recorded Acetaminophen/Caffeine/Butalb 1 tab PO Q6H 12/12/18 [Fioricet -] Atorvastatin Ca [Lipitor] 40 mg PO HS 12/12/18 Metoprolol Tartrate [Lopressor] 100 mg PO DAILY 12/12/18 REVIEW OF SYSTEMS As per [facility] PHYSICAL EXAMINATION Vital Signs - 24 hr 12/11/18 21:24 Temperature 98.8 F Pulse Rate 74 Respiratory 20 Rate Blood Pressure 148/84 O2 Sat by Pulse 99 Oximetry (%) GENERAL: A&Ox3, in some distress HEAD: NC/AT EYES: PERRLA, EOMI EARS, NOSE, THROAT: Ears normal, nares patent, oropharynx clear without exudates. Moist mucous membranes. NECK: Normal range of motion, supple without lymphadenopathy, JVD, or masses. LUNGS: CTA b/l HEART: RRR no m/r/g ABDOMEN: +bs, soft, NT, ND MUSCULOSKELETAL: Normal range of motion at all joints. No bony deformities or tenderness. No CVA tenderness. UPPER EXTREMITIES: 2+ pulses, warm, well-perfused. No cyanosis. No clubbing. No peripheral edema. LOWER EXTREMITIES: 2+ pulses, warm, well-perfused. No calf tenderness. Trace pitting edema at dorsum of feet b/l. NEUROLOGICAL: dye and chemical coordinator, motor, sensory systems w/o focal deficit PSYCHIATRIC: Anxious SKIN: Warm, dry, normal turgor Laboratory Results - last 24 hr 12/11/18 12/11/18 12/11/18 23:10 23:10 23:10 WBC 6.1 RBC 4.42 Hgb 11.1 L Hct 33.7 L MCV 76.3 L MCH 25.1 L MCHC 32.9 RDW 17.7 H Plt Count 289 MPV 8.1 Absolute Neuts (auto) 3.7 Neutrophils % 60.5 Lymphocytes % 22.5 Monocytes % 7.1 Eosinophils % 8.5 H Basophils % 1.4 Nucleated RBC % 0 PT with INR 10.70 INR 0.91 Sodium 143 Potassium 3.5 Chloride 106 Carbon Dioxide 31 Anion Gap 6 L BUN 10 Creatinine 0.7 Creat Clearance w eGFR 120.37 Random Glucose 103 Calcium 8.6 Magnesium 2.0 Total Bilirubin 0.1 L AST 11 L ALT 28 Alkaline Phosphatase 170 H Creatine Kinase 147 Troponin I < 0.02 Total Protein 7.1 Albumin 3.4 ASSESSMENT/PLAN: 48 y/o M w/ PMHx CAD s/p [place] s/p 2 stents (2012), CVA (7-8 y/a), HTN, HLD, arthritis, chronic back pain, kidney stones, polysubstance abuse, current PPD smoker, migraines, p/w sudden onset L-sided chest pain radiating to L arm and L neck #r/o ACS -EKG benign, will repeat -initial troponin negative, will trend -cardiology consulted -echo -cardiac monitoring -IV morphine -await tox screen to consider bblockade -ASA/Plavix based on reported cardiac history, requires urgent medication reconciliation #migraine -fioricet as per reported medications #microcytic anemia -FOBT -iron studies -retics #HTN -medications unknown, BP acceptable at this time #FEN -no IVF -monitor and correct electrolytes -Na-controlled diet #PPx -DVT: Lovenox sq -GI: not indicated #code -full #dispo -admit to tele obs Visit type - Emergency Visit Emergency Visit: Yes ED Registration Date: 12/12/18 Care time: The patient presented to the Emergency Department on the above date and was hospitalized for further evaluation of their emergent condition. - New Patient This patient is new to me today: Yes Date on this admission: 12/12/18 - Critical Care Critical Care patient: No
[2018-12-12 03:28] LABS: METHADONE, UR NEGATIVE ng/ml (CUTOFF=300); OPIATES, URI NEGATIVE ng/ml (CUTOFF=300); PHENCYCLIDINE,URINE NEGATIVE ng/ml (CUTOFF=25); URINE AMPHETAMINES NEGATIVE ng/ml (CUTOFF=500)
[2018-12-12 03:41] LABS: COCAINE, UR POSITIVE ng/ml (CUTOFF=300); URINE BARBITURATES POSITIVE ng/ml (CUTOFF=200); URINE BENZODIAZEPINES POSITIVE ng/ml (CUTOFF=200)
--- NOTE | 2018-12-12 08:40 | CON.CARD ---
Consult Consult Specialty:: Cardiology for Vaishnavi Referred by:: Dr. Partida Reason for Consultation:: chest pain - History of Present Illness Chief Complaint: chest pain History of Present Illness: 48M with PMH HTN, HLD and CAD with prior [place] and reportedly PCI 5 years ago in [place] , cocaine use presents to ER with episode of SSCP yesterday associated with diaphoresis. Describes pain as central at rest and with exertion. Lasted 15 minutes. Cardiac enzymes are negative and ECG was without acute changes. Denies palps, edema, syncope, PND. Denies fever, cough. Does not have a Junior Systems Engineer and does not see a PCP regularly. - History Source History Provided By: Patient, Medical Record Limitations to Obtaining History: Clinical Condition - Past Medical History Cardio/Vascular: Yes: CAD, HTN, Hyperlipdemia Gastrointestinal: No: Ascites, Cancer, Constipation, Crohn's Disease, Diverticulitis, Diverticulosis, Esophageal Varices, Gastritis, GERD, GI Bleed, Hemorrhoids, Hiatal Hernia, Inflamatory Bowel Disease, Irritable Bowel Disease, Pancreatitis, Peptic Ulcer Disease, Ulcerative Colitis, Other Hepatobiliary: No: Cirrhosis, Cholelithiasis, Cholecystitis, Choledocholithiasis , Hepatitis A, Hepatitis B, Hepatitis C, Other Renal/: No: Renal Failure, Renal Inusuff, BPH, Cancer, Hematuria, Hemodialysis , Neurogenic Bladder, Renal Calculi, UTI, Other Heme/Onc: No: Anemia, B12 Deficiency, Bleeding Disorder, Cancer, Current Chemotherapy, Current Radiation Therapy, Hemochromatosis, Hypercoaguable State, Myeloproliferative Synd, Sickle Cell Disease, Sickle Cell Trait, Thrombocytopenia, Other Infectious Disease: No: AIDS, C-Diff, Herpes Zoster, HIV, MRSA, STD's, Tuberculosis, VREF, Other Psych: No: Addictions, Anxiety, Bipolar, Depression, Panic, Psychosis, Schizophrenia, Other Musculoskeletal: No: Bursitis, Chronic low back pain, Hemiparesis, Hemiplegia, Osteoarthritis, Paraplegia, Other Rheumatology: No: Fibromyalgia, Gout, Lupus, Rheumatoid Arthritis, Sarcoidosis, Vasculitis, Other Endocrine: No: Asaf's Disease, [place]'s Disease, Diabetes Insipidus, Diabetes Mellitus, Hyperparathyroidism, Hyperthyroidism, Hypothyroidism, Osteopenia, SIADH, Other Dermatology: No: Basal Cell, Cellulitis, Eczema, Melanoma, Psoriasis, Squamous Cell, Other - Alcohol/Substance Use Hx Alcohol Use: No History of Substance Use: reports: Cocaine - Smoking History Smoking history: Smoker current status UNK Have you smoked in the past 12 months: Yes Aproximately how many cigarettes per day: 20 - Social History Usual Living Arrangement: With Spouse History of Recent Travel: No Home Medications - Allergies Allergies/Adverse Reactions: Allergies Allergy/AdvReac Type Severity Reaction Status Date / Time No Known Allergies Allergy Verified 08/17/18 15:23 - Home Medications Home Medications: Ambulatory Orders Acetaminophen/Caffeine/Butalb [Fioricet -] 1 tab PO Q6H 12/12/18 Atorvastatin Ca [Lipitor] 40 mg PO HS 12/12/18 Metoprolol Tartrate [Lopressor] 100 mg PO DAILY 12/12/18 Family Disease History - Family Disease History Family History: Unremarkable (not pertinent to this presentation) Review of Systems Findings/Remarks: see HPI - Review of Systems Constitutional: reports: No Symptoms Eyes: reports: No Symptoms HENT: reports: No Symptoms Neck: reports: No Symptoms Cardiovascular: reports: Chest Pain Respiratory: reports: No Symptoms Gastrointestinal: reports: No Symptoms Genitourinary: reports: No Symptoms Neurological: reports: No Symptoms Endocrine: reports: No Symptoms Hematology/Lymphatic: reports: No Symptoms - Risk Factors Known Risk Factors: Yes: Hypertension, Prior TX /Emb Stroke Vital Signs: Vital Signs Temperature 98.8 F 12/11/18 21:24 Pulse Rate 74 12/11/18 21:24 Respiratory Rate 20 12/11/18 21:24 Blood Pressure 148/84 12/11/18 21:24 O2 Sat by Pulse Oximetry (%) 99 12/11/18 21:24 Constitutional: Yes: No Distress, Calm Eyes: Yes: Conjunctiva Clear Respiratory: Yes: CTA Bilaterally Gastrointestinal: Yes: Soft Cardiovascular: Yes: Regular Rate and Rhythm JVD: No Carotid Bruit: No PMI: Non-Displaced Heart Sounds: Yes: S1, S2 (RRR, no murmurs) Edema: No Peripheral Pulses WNL: Yes Neurological: Yes: Alert, Oriented ...Motor Strength: WNL - Other Data Labs, Other Data: CBC, BMP 12/11/18 23:10 12/11/18 23:10 INR, PTT INR 0.91 (0.83-1.09) 12/11/18 23:10 Troponin, BNP 12/11/18 12/12/18 23:10 02:05 Troponin I < 0.02 < 0.02 Troponin, BNP 12/11/18 12/12/18 23:10 02:05 Troponin I < 0.02 < 0.02 Laboratory Tests 12/11/18 12/11/18 12/11/18 23:10 23:10 23:10 WBC 6.1 Hgb 11.1 L Plt Count 289 PT with INR 10.70 Sodium 143 Potassium 3.5 Creatinine 0.7 Alkaline Phosphatase 170 H Troponin I < 0.02 Barbiturate Screen Benzodiazepines Screen Cocaine Screen U Marijuana (THC) Screen 12/12/18 12/12/18 02:05 02:23 WBC Hgb Plt Count PT with INR Sodium Potassium Creatinine Alkaline Phosphatase Troponin I < 0.02 Barbiturate Screen Positive A* Benzodiazepines Screen Positive A* Cocaine Screen Positive A* U Marijuana (THC) Screen Negative NSR, no acute ST changes Echo: Pending Imaging - Results EKG: Image Reviewed Problem List - Problems (1) CAD (coronary artery disease) Code(s): I25.10 - ATHSCL HEART DISEASE OF [place] CORONARY ARTERY W/O ANG PCTRS Qualifiers: Coronary Disease-Associated Artery/Lesion type: [place] artery Associated angina: without angina (2) Cocaine abuse Code(s): F14.10 - COCAINE ABUSE, UNCOMPLICATED (3) Left-sided chest pain Code(s): R07.9 - CHEST PAIN, UNSPECIFIED (4) HTN (hypertension) Code(s): I10 - ESSENTIAL (PRIMARY) HYPERTENSION Qualifiers: Hypertension type: essential hypertension Qualified Code(s): I10 - Essential (primary) hypertension Assessment/Plan IMP: Atypical CP History CAD s/p [place] and PCI 5 years ago Cocaine use History of HTN History of Hyperlipidemia REC: 1. ASA 2. Check Lipids 3. Avoid beta blockers (+ Cocaine Utox); can use Cardizem if tachycardia or Amlodipine if HTN 4. Plan for Echo and exercise MPI in AM Coverage for Vaishnavi
[2018-12-12] MEDS ORDERED: MORPHINE SULFATE 2 MG/ML VIAL ONE (09:24)
[2018-12-12] MEDS: CLOPIDOGREL BISULFATE 75 MG TABLET (FP) PO SCH (09:27)
[2018-12-12] MEDS: ENOXAPARIN NA (PORCINE) 40 MG/0.4 ML DISP.SYRIN SQ SCH (09:27)
[2018-12-12] MEDS: ASPIRIN COATED 81 MG TABLET.EC PO SCH (09:27)
[2018-12-12] MEDS ORDERED: morphine CARPU-JECT 2 MG/1 ML DISP.SYRIN IVPUSH ONE (09:28)
[2018-12-12] MEDS ORDERED: NITROGLYCERIN SUBLINGUAL 1/200 0.3 MG BTL SL PRN (10:01)
[2018-12-12] MEDS ORDERED: ACETAMINOPHEN/CAFFEINE/BUTALBITAL 1 TAB PO PRN (10:02)
[2018-12-12] MEDS ORDERED: PT OWN MED DRAWER 7, Y5N ONE (10:56)
--- NOTE | 2018-12-12 11:01 | EKG ---
Test Reason : Blood Pressure : / mmHG Vent. Rate : 079 BPM Atrial Rate : 079 BPM P-R Int : 150 ms QRS Dur : 086 ms QT Int : 410 ms P-R-T Axes : 057 032 043 degrees QTc Int : 470 ms NORMAL SINUS RHYTHM NORMAL ECG WHEN COMPARED WITH ECG OF 12-DEC-2018 02:18, NO SIGNIFICANT CHANGE WAS FOUND Confirmed by MD MARYAN, NANCY ([id number]) on 12/12/2018 11:00:45 AM Referred By: Clover BREEN Confirmed By:NANCY STEINBERG MD
--- NOTE | 2018-12-12 11:04 | EKG ---
Test Reason : Blood Pressure : / mmHG Vent. Rate : 090 BPM Atrial Rate : 090 BPM P-R Int : 152 ms QRS Dur : 080 ms QT Int : 384 ms P-R-T Axes : 048 028 035 degrees QTc Int : 469 ms POOR DATA QUALITY, INTERPRETATION MAY BE ADVERSELY AFFECTED NORMAL SINUS RHYTHM NORMAL ECG NO PREVIOUS ECGS AVAILABLE Confirmed by MD MARYAN, NANCY ([id number]) on 12/12/2018 11:04:16 AM Referred By: Confirmed By:NANCY STEINBERG MD
--- NOTE | 2018-12-12 11:08 | EKG ---
Test Reason : Blood Pressure : / mmHG Vent. Rate : 086 BPM Atrial Rate : 086 BPM P-R Int : 152 ms QRS Dur : 076 ms QT Int : 394 ms P-R-T Axes : 057 040 052 degrees QTc Int : 471 ms POOR DATA QUALITY, INTERPRETATION MAY BE ADVERSELY AFFECTED NORMAL SINUS RHYTHM POSSIBLE LEFT ATRIAL ENLARGEMENT BORDERLINE ECG NO PREVIOUS ECGS AVAILABLE Confirmed by MD MARYAN, NANCY ([id number]) on 12/12/2018 11:08:36 AM Referred By: Confirmed By:NANCY STEINBERG MD
[2018-12-12 11:11] LABS: BASO % 0.6 % (0-2.0); EOS % 7.1 % (0-4.5); HEMATOCRIT 33.2 % (35.4-49); HEMOGLOBIN 10.8 GM/dL (11.7-16.9); LYMPH % 18.3 % (8-40); MCH 24.8 pg (25.7-33.7); MCHC 32.5 g/dl (32.0-35.9); MEAN CELL VOLUME 76.3 fl (80-96); MEAN PLT VOLUME 8.6 fl (7.5-11.1); PLATELET COUNT 273 K/MM3 (134-434); RBC 4.35 M/mm3 (4.00-5.60); RDW 17.8 % (11.9-15.9); RETICULOCYTES 1.47 % (0.5-1.5); WHITE BLOOD COUNT 5.6 K/mm3 (4.0-10.0)
[2018-12-12] MEDS: ACETAMINOPHEN/CAFFEINE/BUTALBITAL 1 TAB PO PRN ×2 (11:54→20:24)
[2018-12-12 11:59] LABS: ANION GAP 6 MMOL/L (8-16); BLOOD UREA NITROGEN 10 mg/dL (7-18); CALCIUM 8.4 mg/dL (8.5-10.1); CHLORIDE 110 mmol/L (98-107); CO2 27 mmol/L (21-32); CREATININE 0.7 mg/dL (0.55-1.3); GLUCOSE,RANDOM 86 mg/dL (74-106); MAGNESIUM 1.8 mg/dL (1.8-2.4); PHOSPHOROUS 2.9 mg/dL (2.5-4.9); SODIUM 143 mmol/L (136-145)
[2018-12-12] MEDS ORDERED: LORazepam 1 MG TABLET PO ONE (12:00)
--- NOTE | 2018-12-12 17:41 | PN ---
Progress Note (short form) - Note Progress Note: SUBJECTIVE: Still complains of chest pain. No nausea/vomiting/diaphoresis. No fever/chills/cough/sputum/hemoptysis.Asking for Morphine. OBJECTIVE: Afebrile, Hemodynamically Stable Last Vital Signs Temp Pulse Resp BP Pulse Ox 98.1 F 92 H 16 128/78 98 12/12/18 14:00 12/12/18 14:00 12/12/18 12:17 12/12/18 14:00 12/12/18 12:17 HEENT - Atraumatic, Normocephalic. Heart - S1, S2, RRR Lungs - clear to auscultation. Abdomen - High BMI. Soft, non-tender. Bowel Sounds normal. Extremities - no calf tenderness Laboratory Results - last 24 hr 12/11/18 12/11/18 12/11/18 23:10 23:10 23:10 WBC 6.1 RBC 4.42 Hgb 11.1 L Hct 33.7 L MCV 76.3 L MCH 25.1 L MCHC 32.9 RDW 17.7 H Plt Count 289 MPV 8.1 Absolute Neuts (auto) 3.7 Neutrophils % 60.5 Lymphocytes % 22.5 Monocytes % 7.1 Eosinophils % 8.5 H Basophils % 1.4 Nucleated RBC % 0 Retic Count PT with INR 10.70 INR 0.91 Sodium 143 Potassium 3.5 Chloride 106 Carbon Dioxide 31 Anion Gap 6 L BUN 10 Creatinine 0.7 Creat Clearance w eGFR 120.37 Random Glucose 103 Calcium 8.6 Phosphorus Magnesium 2.0 Ferritin Total Bilirubin 0.1 L AST 11 L ALT 28 Alkaline Phosphatase 170 H Creatine Kinase 147 Troponin I < 0.02 Total Protein 7.1 Albumin 3.4 Opiates Screen Methadone Screen Barbiturate Screen Phencyclidine Screen Ur Amphetamines Screen MDMA (Ecstasy) Screen Benzodiazepines Screen Cocaine Screen U Marijuana (THC) Screen 12/12/18 12/12/18 12/12/18 02:05 02:23 10:30 WBC 5.6 RBC 4.35 Hgb 10.8 L Hct 33.2 L MCV 76.3 L MCH 24.8 L MCHC 32.5 RDW 17.8 H Plt Count 273 MPV 8.6 Absolute Neuts (auto) 3.7 Neutrophils % 67.0 Lymphocytes % 18.3 Monocytes % 7.0 Eosinophils % 7.1 H Basophils % 0.6 Nucleated RBC % 0 Retic Count 1.47 PT with INR INR Sodium Potassium Chloride Carbon Dioxide Anion Gap BUN Creatinine Creat Clearance w eGFR Random Glucose Calcium Phosphorus Magnesium Ferritin Total Bilirubin AST ALT Alkaline Phosphatase Creatine Kinase Troponin I < 0.02 Total Protein Albumin Opiates Screen Negative Methadone Screen Negative Barbiturate Screen Positive A* Phencyclidine Screen Negative Ur Amphetamines Screen Negative MDMA (Ecstasy) Screen Negative Benzodiazepines Screen Positive A* Cocaine Screen Positive A* U Marijuana (THC) Screen Negative 12/12/18 12/12/18 10:30 10:30 WBC RBC Hgb Hct MCV MCH MCHC RDW Plt Count MPV Absolute Neuts (auto) Neutrophils % Lymphocytes % Monocytes % Eosinophils % Basophils % Nucleated RBC % Retic Count PT with INR INR Sodium 143 Potassium 4.0 Chloride 110 H Carbon Dioxide 27 Anion Gap 6 L BUN 10 Creatinine 0.7 Creat Clearance w eGFR 120.37 Random Glucose 86 Calcium 8.4 L Phosphorus 2.9 Magnesium 1.8 Ferritin 4.2 L Total Bilirubin AST ALT Alkaline Phosphatase Creatine Kinase 109 Troponin I < 0.02 < 0.02 Total Protein Albumin Opiates Screen Methadone Screen Barbiturate Screen Phencyclidine Screen Ur Amphetamines Screen MDMA (Ecstasy) Screen Benzodiazepines Screen Cocaine Screen U Marijuana (THC) Screen Current Medications Generic Name Dose Route Start Last Admin Trade Name Freq PRN Reason Stop Dose Admin Acetaminophen/Butalbital/Caffeine 2 tablet 12/12/18 10:42 12/12/18 11:54 Fioricet - PO 2 tablet Q6H PRN Administration HEADACHE Aspirin 81 mg 12/12/18 10:00 12/12/18 09:27 Ecotrin - PO 81 mg DAILY ALICIA Administration Clopidogrel Bisulfate 75 mg 12/12/18 10:00 12/12/18 09:27 Plavix - PO 75 mg DAILY ALICIA Administration Enoxaparin Sodium 40 mg 12/12/18 10:00 12/12/18 09:27 Lovenox - SQ 40 mg DAILY ALICIA Administration Nitroglycerin 0.3 mg 12/12/18 10:01 12/12/18 10:45 Nitrostat - SL 0.3 mg Q5M PRN Administration FOR CHEST PAIN Home Medications Medication Instructions Recorded Acetaminophen/Caffeine/Butalb 1 tab PO Q6H 12/12/18 [Fioricet -] Atorvastatin Ca [Lipitor] 40 mg PO HS 12/12/18 Metoprolol Tartrate [Lopressor] 100 mg PO DAILY 12/12/18 ASSESSMENT/PLAN 48 year old male with with history of Polysubstance abuse (benzodiazepines, cocaine), CAD s/p [place] s/p PCI/Stent x 2, Hx of CVA, HTN, HLD, OA, Chronic Back Pain, Nephrolithiasis, Migraines, presents with L sided chest pain, radiating down L arm with associated nausea, diaphoresis - no vomiting or shortness of breath. 1. Chest Pain in context of cocaine use History of CAD s/p PCI/Stent x 2. ECG - SR, no acute changes Troponin neg x 2 Utox positive for cocaine and benzos Echo pending Evaluated by Cardiology - for Exercise Stress Test 3 Continue Aspirin, Plavix. No BB given positive cocaine toxicology. 2. History of Migraines - Fioricet prn 3. Microcytic Anemia No history of GI blood loss. Iron studies pending 4. HLD - Continue Atorvastatin 5. HTN - Normally on Metoprolol - held in context of active cocaine use. 6. History of Polysubstance abuse including cocaine - will consult Addiction Medicine. DVT Px -Lovenox Visit type - Emergency Visit Emergency Visit: Yes ED Registration Date: 12/12/18 Care time: The patient presented to the Emergency Department on the above date and was hospitalized for further evaluation of their emergent condition. - New Patient This patient is new to me today: Yes Date on this admission: 12/12/18 - Critical Care Critical Care patient: No - Discharge Referral Referred to [facility] Med P.C.: No
[2018-12-13] MEDS: ACETAMINOPHEN/CAFFEINE/BUTALBITAL 1 TAB PO PRN (09:17)
--- NOTE | 2018-12-13 12:12 | PN ---
Progress Note, Physician History of Present Illness: 48M with PMH HTN, HLD and CAD with prior ID and reportedly PCI 5 years ago in [place] , cocaine use presents to ER with episode of SSCP yesterday associated with diaphoresis. Describes pain as central at rest and with exertion. Lasted 15 minutes. Cardiac enzymes are negative and ECG was without acute changes. Denies palps, edema, syncope, PND. Denies fever, cough. Does not have a Stock Feeder and does not see a PCP regularly. - Current Medication List Current Medications: Active Medications Aspirin (Ecotrin -) 81 mg PO DAILY [facility] Last Admin: 12/12/18 09:27 Dose: 81 mg Clopidogrel Bisulfate (Plavix -) 75 mg PO DAILY [facility] Last Admin: 12/12/18 09:27 Dose: 75 mg Enoxaparin Sodium (Lovenox -) 40 mg SQ DAILY [facility] Last Admin: 12/12/18 09:27 Dose: 40 mg Nitroglycerin (Nitrostat -) 0.3 mg SL Q5M PRN PRN Reason: FOR CHEST PAIN Last Admin: 12/12/18 10:45 Dose: 0.3 mg - Objective Vital Signs: Vital Signs Temperature 98 F 12/13/18 04:56 Pulse Rate 77 12/13/18 04:56 Respiratory Rate 16 12/13/18 04:56 Blood Pressure 141/81 12/13/18 04:56 O2 Sat by Pulse Oximetry (%) 98 12/13/18 04:00 Eyes: Yes: WNL, Conjunctiva Clear, EOM Intact HENT: Yes: WNL, Atraumatic, Normocephalic Neck: Yes: WNL, Supple, Trachea Midline Cardiovascular: Yes: WNL, Regular Rate and Rhythm Respiratory: Yes: WNL, Regular, CTA Bilaterally Gastrointestinal: Yes: WNL, Normal Bowel Sounds Genitourinary: Yes: WNL Musculoskeletal: Yes: WNL Extremities: Yes: WNL Edema: No Integumentary: Yes: WNL Neurological: Yes: WNL, Alert, Oriented ...Motor Strength: WNL Psychiatric: Yes: WNL Labs: CBC, BMP 12/12/18 10:30 12/12/18 10:30 INR, PTT INR 0.91 (0.83-1.09) 12/11/18 23:10 Assessment/Plan IMP: Atypical CP History CAD s/p ID and PCI 5 years ago Cocaine use History of HTN History of Hyperlipidemia REC: 1. ASA 2. Check Lipids 3. Avoid beta blockers (+ Cocaine Utox); can use Cardizem if tachycardia or Amlodipine if HTN 4. Plan for Echo refusing exercise MPI
--- NOTE | 2018-12-13 12:24 | PN ---
Physical Exam: SUBJECTIVE: Patient seen and examined at bedside. Affirms improvement of chest pain. Per nursing staff, refusing stress test and echo as recommended by cardiology. OBJECTIVE: Vital Signs Period Temp Pulse Resp BP Sys/Tolentino Pulse Ox Last 24 Hr 97.5 F-98.5 F 77-92 16-20 126-141/68-82 98-98 GENERAL: A&Ox3, NAD HEAD: NC/AT EYES: PERRLA, EOMI EARS, NOSE, THROAT: Ears normal, nares patent, oropharynx clear without exudates. Moist mucous membranes. NECK: Normal range of motion, supple without lymphadenopathy, JVD, or masses. LUNGS: CTA b/l HEART: RRR no m/r/g ABDOMEN: +bs, soft, NT, ND MUSCULOSKELETAL: Normal range of motion at all joints. No bony deformities or tenderness. No CVA tenderness. UPPER EXTREMITIES: 2+ pulses, warm, well-perfused. No cyanosis. No clubbing. No peripheral edema. LOWER EXTREMITIES: 2+ pulses, warm, well-perfused. No calf tenderness. Trace pitting edema at dorsum of feet b/l. NEUROLOGICAL: banquet supervisor, motor, sensory systems w/o focal deficit PSYCHIATRIC: Anxious, tangential SKIN: Warm, dry, normal turgor Active Medications Generic Name Dose Route Start Last Admin Trade Name Freq PRN Reason Stop Dose Admin Aspirin 81 mg 12/12/18 10:00 12/12/18 09:27 Ecotrin - PO 81 mg DAILY ALICIA Administration Clopidogrel Bisulfate 75 mg 12/12/18 10:00 12/12/18 09:27 Plavix - PO 75 mg DAILY ALICIA Administration Enoxaparin Sodium 40 mg 12/12/18 10:00 12/12/18 09:27 Lovenox - SQ 40 mg DAILY ALICIA Administration Nitroglycerin 0.3 mg 12/12/18 10:01 12/12/18 10:45 Nitrostat - SL 0.3 mg Q5M PRN Administration FOR CHEST PAIN ASSESSMENT/PLAN: 48 y/o M w/ PMHx CAD s/p [place] s/p 2 stents (2012), CVA (7-8 y/a), HTN, HLD, arthritis, chronic back pain, kidney stones, polysubstance abuse, current PPD smoker, migraines, p/w sudden onset L-sided chest pain radiating to L arm and L neck #r/o ACS -EKG benign -serial troponins negative -cardiology consulted -Pt refusing echocardiogram and stress test -per cardiology, cont ASA, bblockade contraindicated d/t cocaine positivity, can give diltiazem if tachycardic or amlodipine if hypertensive. #FEN -no IVF -monitor and correct electrolytes -Na-controlled diet #PPx -DVT: Lovenox sq -GI: not indicated #code -full #dispo -tele obs -may leave AMA if continuing to refuse workup Visit type - Emergency Visit Emergency Visit: No - New Patient This patient is new to me today: No - Critical Care Critical Care patient: No
[2018-12-13] MEDS: ASPIRIN COATED 81 MG TABLET.EC PO SCH (12:41)
[2018-12-13] MEDS: ENOXAPARIN NA (PORCINE) 40 MG/0.4 ML DISP.SYRIN SQ SCH (12:44)
[2018-12-13] MEDS: CLOPIDOGREL BISULFATE 75 MG TABLET (FP) PO SCH (12:47)
--- NOTE | 2018-12-13 14:19 | PN ---
Teaching Attending Note Name of Resident: Que Ardon ATTENDING PHYSICIAN STATEMENT I saw and evaluated the patient. I reviewed the resident's note and discussed the case with the resident. I agree with the resident's findings and plan as documented. SUBJECTIVE: No further chest discomfort on my interview. No nausea/vomiting/ diaphoresis. No fever/chills/cough/sputum/hemoptysis. Refused stress test and had breakfast brought in by his friend. OBJECTIVE: Afebrile, Hemodynamically Stable Last Vital Signs Temp Pulse Resp BP Pulse Ox 97.9 F 78 18 138/76 98 12/13/18 09:00 12/13/18 09:00 12/13/18 09:00 12/13/18 09:00 12/13/18 12:00 HEENT - Atraumatic, Normocephalic. Malodorous. Unkempt. Heart - S1, S2, RRR Lungs - clear to auscultation. Abdomen - High BMI. Soft, non-tender. Bowel Sounds normal. Extremities - no calf tenderness Current Medications Generic Name Dose Route Start Last Admin Trade Name Nelida PRN Reason Stop Dose Admin Aspirin 81 mg 12/12/18 10:12/13/18 12:41 Ecotrin - PO 81 mg DAILY ALICIA Administration Enoxaparin Sodium 40 mg 12/12/18 10:00 12/13/18 12:44 Lovenox - SQ Not Given DAILY [facility] Nitroglycerin 0.3 mg 12/12/18 10:01 12/12/18 10:45 Nitrostat - SL 0.3 mg Q5M PRN Administration FOR CHEST PAIN ASSESSMENT/PLAN 48 year old male with with history of Polysubstance abuse (benzodiazepines, cocaine), CAD s/p [place] s/p PCI/Stent x 2, Hx of CVA, HTN, HLD, OA, Chronic Back Pain, Nephrolithiasis, Migraines, presents with L sided chest pain, radiating down L arm with associated nausea, diaphoresis - no vomiting or shortness of breath. 1. Chest Pain in context of cocaine use History of CAD s/p PCI/Stent x 2. ECG - SR, no acute changes Troponin neg x 2 Utox positive for cocaine and benzos Echo pending Evaluated by Cardiology - declined Exercise Stress Test 12/13, agrees for 12/14 Continue Aspirin. No BB given positive cocaine toxicology. 2. History of Migraines - claims to be on Fioricet q4h but has no out-patient prescription. High suspicion of barbituate seeking. 3. Microcytic Anemia Ferritin 4 No history of acute/chronic GI blood loss. Will need out-patient work-up. Will give IV Venofer and start on Ferrous Sulfate 4. HLD - Continue Atorvastatin 5. HTN - Normally on Metoprolol - held in context of active cocaine use. 6. History of Polysubstance abuse including cocaine - continues to ask for morphine - will consult Addiction Medicine. DVT Px -Lovenox SQ
[2018-12-13] MEDS ORDERED: ACETAMINOPHEN 325 MG TABLET (FP) PO PRN (14:20)
--- NOTE | 2018-12-13 16:16 | PN ---
[facility] Progress Note (SOAP) Subjective: 48 y.o. male referred forconsultation , reports cocaine use 20 $ / month via inhlaation , denies IVDU . Deniea cannabis use . Denies etoh use , Reports tobacco 2 ppd x " many years " , reports Percocet use . PMH of CAD s/p [place] s/p 2x stents (2012), s/p CVA 7 years ago, HTN, HLD, arthritis , chronic back pain, kidney stones . Active Medications Acetaminophen (Tylenol -) 650 mg PO Q6H PRN PRN Reason: PAIN Aspirin (Ecotrin -) 81 mg PO DAILY [facility] Last Admin: 12/13/18 12:41 Dose: 81 mg Enoxaparin Sodium (Lovenox -) 40 mg SQ DAILY [facility] Last Admin: 12/13/18 12:44 Dose: Not Given Ferrous Sulfate (Feosol -) 325 mg PO BIDWM [facility] Iron Sucrose 200 mg/ Sodium (Chloride) 100 mls @ 100 mls/hr IVPB ONCE ONE Stop: 12/13/18 17:59 Nitroglycerin (Nitrostat -) 0.3 mg SL Q5M PRN PRN Reason: FOR CHEST PAIN Last Admin: 12/12/18 10:45 Dose: 0.3 mg Search Terms: pascale olea, 1970 Search Date: 12/13/2018 04:15:26 PM The Drug Utilization Report below displays all of the controlled substance prescriptions, if any, that your patient has filled in the last twelve months. The information displayed on this report is compiled from pharmacy submissions to the Department, and accurately reflects the information as submitted by the pharmacies. This report was requested by: Jena Pratt | Reference #: [id number] Others' Prescriptions Patient Name: Pascale Olea Date: 1970 Address: [address] [place] [address] Sex: Male Rx Written Rx Dispensed Drug Quantity Days Supply Prescriber Name 12/01/2018 12/01/2018 oxycodone-acetaminophen 5-325 mg tab 12 3 Ed Whittaker 12/01/2018 12/01/2018 diazepam 5 mg tablet 12 3 Ed Whittaker 04/27/2018 04/27/2018 diazepam 10 mg tablet 60 30 Irineo Post MD 03/30/2018 03/30/2018 diazepam 10 mg tablet 5 5 FuzaylLee snowdenTacos 03/15/2018 03/15/2018 diazepam 10 mg tablet 10 10 Claudio Eriwn 12/19/2017 12/19/2017 oxycodone-acetaminophen 5-325 mg tablet 15 4 Maximino Mercado A, (MD) 12/19/2017 12/19/2017 diazepam 5 mg tablet 12 4 Maximino Mercado A () 12/15/2017 12/15/2017 oxycodone-acetaminophen 5-325 mg tablet 12 4 [facility] Patient Name: Pascale Olea Date: 1970 Address: [address] [place] [address] Sex: Male Rx Written Rx Dispensed Drug Quantity Days Supply Prescriber Name 07/06/2018 07/06/2018 diazepam 10 mg tablet 5 2 Marina Charles ([facility]) Patient Name: Pascale Olea Date: 1970 Address: [address] [place] [address] Sex: Male Rx Written Rx Dispensed Drug Quantity Days Supply Prescriber Name 02/23/2018 02/24/2018 oxycodone-acetaminophen 5-325 mg tablet 90 30 GatoRajinder Patient Name: Pascale Olea Date: 1970 Address: [address] [place] [address] Sex: Male Rx Written Rx Dispensed Drug Quantity Days Supply Prescriber Name 02/15/2018 02/15/2018 oxycodone-acetaminophen 5-325 mg tab 15 5 Henry Benitez Objective: wnwd , no distress noted Heent : NCAT EOMI mucosae moist Resp : no distress noted Neuro : AAO x3 , no tremors CBC, BMP 12/12/18 10:30 12/12/18 10:30 INR, PTT INR 0.91 (0.83-1.09) 12/11/18 23:10 Vital Signs - 24 hr 12/12/18 12/12/18 12/13/18 17:00 20:42 04:00 Temperature 97.5 F L 98.5 F Pulse Rate 78 78 Respiratory 20 20 20 Rate Blood Pressure 126/68 131/82 O2 Sat by Pulse 98 98 Oximetry (%) 12/13/18 12/13/18 12/13/18 04:56 09:00 12:00 Temperature 98 F 97.9 F Pulse Rate 77 78 Respiratory 16 18 Rate Blood Pressure 141/81 138/76 O2 Sat by Pulse 98 Oximetry (%) u tox + bar , + bzo , + anabel , + THC Assessment: cocaine dependence nicotine dependence Plan: pt declined referral to outpatient rehab requesting Fioricet for migraine MEJIAS .
--- NOTE | 2018-12-13 16:53 | ECHO ---
Name: KARLA TANNER Exam:Adult Echocardiogram Study Date: 12/13/2018 01:13 PM Age: 48 yrs Reason For Study: assess lvef,rvef,valvular function Height: 70 in Weight: 240 lb BSA: 2.3 m2 MMode/2D Measurements & Calculations IVSd: 0.87 cm Ao root diam: 3.8 cm LVIDd: 4.1 cm LA dimension: 4.4 cm LVIDs: 3.0 cm ACS: 1.8 cm LVPWd: 1.0 cm IVSs: 0.95 cm LVPWs: 1.1 cm EDV(Teich): 73.4 ml ESV(Teich): 34.0 ml Doppler Measurements & Calculations MV E max gabbie: 76.3 cm/sec Ao V2 max: 148.0 cm/sec MV A max gabbie: 60.5 cm/sec Ao max P.8 mmHg MV E/A: 1.3 Med Peak E' Gabbie: 9.9 cm/sec Med E/e': 7.7 Lat Peak E' Gabbie: 10.1 cm/sec Lat E/e': 7.5 Procedure A complete two-dimensional transthoracic echocardiogram was performed (2D, M-mode, Doppler and color flow Doppler). Left Ventricle The left ventricle is normal in size. Left ventricular systolic function is normal. Ejection Fraction = 60- 65%. No regional wall motion abnormalities noted. Right Ventricle The right ventricle is normal size. The right ventricular systolic function is normal. Atria The left atrium is mildly dilated. Right atrial size is normal. Mitral Valve There is mild mitral annular calcification. There is trace mitral regurgitation. Tricuspid Valve The tricuspid valve is normal in structure and function. No tricuspid regurgitation. Aortic Valve The aortic valve is normal in structure and function. No aortic regurgitation is present. Pulmonic Valve The pulmonic valve is not well visualized. Great Vessels Borderline aortic root dilatation. Pericardium/Pleura Small pericardial effusion (<1cm). Interpretation Summary The left ventricle is normal in size. Left ventricular systolic function is normal. No regional wall motion abnormalities noted. Ejection Fraction = 60-65%. The right ventricular systolic function is normal. The left atrium is mildly dilated. Right atrial size is normal. There is mild mitral annular calcification. There is trace mitral regurgitation. Borderline aortic root dilatation. Small pericardial effusion (<1cm) Previous study is not available for comparison René Up MD 12/13/2018 04:52 PM
[2018-12-13] MEDS ORDERED: IRON SUCROSE INJECTION 200 MG in SODIUM CHLORIDE 90 ML IVPB ONE (17:00)
[2018-12-13] MEDS: FERROUS SO4 325 MG TABLET (FP) PO SCH (18:57)
[2018-12-13 23:56] VITALS: BP 155/80; PULSE 65; TEMP 97.5
[2018-12-14] MEDS: FERROUS SO4 325 MG TABLET (FP) PO SCH (08:24)
[2018-12-14] MEDS: ENOXAPARIN NA (PORCINE) 40 MG/0.4 ML DISP.SYRIN SQ SCH (09:22)
[2018-12-14] MEDS: ASPIRIN COATED 81 MG TABLET.EC PO SCH (10:57)
--- NOTE | 2018-12-14 11:49 | DS ---
"Physical Exam: SUBJECTIVE: Patient seen and examined at bedside. Affirms chest pain. Unidentified male has been sleeping at Pt's bedside the past two nights; both become angry when asked to identify who he is. Per nursing staff, refusing IV placement to undergo stress test. OBJECTIVE: Vital Signs Period Temp Pulse Resp BP Sys/Tolentino Pulse Ox Last 24 Hr 97.5 F 65 18 155/80 98-99 PHYSICAL EXAM GENERAL: A&Ox3, NAD CV: RRR no m/r/g RESP: CTA b/l Otherwise refused examination LABS HOSPITAL COURSE: Date of Admission:12/12/18 Patient is a 48 y/o M w/ PMHx CAD s/p [place] s/p 2 stents (2012), CVA (7-8 y/a), HTN , HLD, arthritis, chronic back pain, kidney stones, polysubstance abuse, current PPD smoker, migraines, although none of this history has been confirmed. He presented with sudden onset L-sided chest pain radiating to L arm and L neck. Urine toxicology was positive for cocaine, benzodiazepines, and barbiturates, known to have recently taken Fioricet. Troponins negative, EKG without concerning findings, echocardiogram without concerning findings. Cardiology consulted from the ED. Throughout hospitalization, unknown individual stayed overnight at patient's bedside and both of them became angry and agitated when inquiries were made as to the nature of his presence. Patient refused stress testing and violated diet orders the morning after hospitalization. Stress testing was attempted the following morning but at that time the patient eloped. Addiction medicine was consulted and provided the following report indicating use of multiple providers to obtained controlled substances: The Drug Utilization Report below displays all of the controlled substance prescriptions, if any, that your patient has filled in the last twelve months. The information displayed on this report is compiled from pharmacy submissions to the Department, and accurately reflects the information as submitted by the pharmacies. This report was requested by: Jena Pratt | Reference #: [id number] Others' Prescriptions Patient Name: Tor García Date: 1970 Address: [address] [address] Sex: Male Rx Written Rx Dispensed Drug Quantity Days Supply Prescriber Name 12/01/2018 12/01/2018 oxycodone-acetaminophen 5-325 mg tab 12 3 Ed Whittaker 12/01/2018 12/01/2018 diazepam 5 mg tablet 12 3 Ed Whittaker 04/27/2018 04/27/2018 diazepam 10 mg tablet 60 30 Irineo Post MD 03/30/2018 03/30/2018 diazepam 10 mg tablet 5 5 Tacos Larson 03/15/2018 03/15/2018 diazepam 10 mg tablet 10 10 Claudio Erwin Favian Shea 12/19/2017 12/19/2017 oxycodone-acetaminophen 5-325 mg tablet 15 4 Maximino Mercado A, (MD) 12/19/2017 12/19/2017 diazepam 5 mg tablet 12 4 Maximino Mercado A, (MD) 12/15/2017 12/15/2017 oxycodone-acetaminophen 5-325 mg tablet 12 4 [facility] Patient Name: Tor García Date: 1970 Address: [address] [place] [address] Sex: Male Rx Written Rx Dispensed Drug Quantity Days Supply Prescriber Name 07/06/2018 07/06/2018 diazepam 10 mg tablet 5 2 Marina Charles ([facility]) Patient Name: Tor García Date: 1970 Address: [address] [place] [address] Sex: Male Rx Written Rx Dispensed Drug Quantity Days Supply Prescriber Name 02/23/2018 02/24/2018 oxycodone-acetaminophen 5-325 mg tablet 90 30 Gato Rajinder Patient Name: Tor García Date: 1970 Address: [address] [place] [address] Sex: Male Rx Written Rx Dispensed Drug Quantity Days Supply Prescriber Name 02/15/2018 02/15/2018 oxycodone-acetaminophen 5-325 mg tab 15 5 Henry Benitez Date of Discharge: 12/14/18 Minutes to complete discharge: 40 Discharge Summary Reason For Visit: LEFT-SIDED CHEST PAIN Condition: Stable - Instructions Diet, Activity, Other Instructions: You presented with chest pain. EKG and troponins were normal. Your toxicology screen was positive for cocaine. You refused further recommended cardiac workup and eloped from the hospital. If you experience new or worsening chest pain, shortness of breath, fever, chills, or any other new or concerning symptoms, please return to the Emergency Department. Referrals: [facility] [place] [Provider Group] Sergio Phoenix MD [Staff Physician] - Disposition: ELOPED - Home Medications Comprehensive Discharge Medication List: Ambulatory Orders Aspirin [Adult Aspirin] 81 mg PO DAILY 12/13/18 Gabapentin 300 mg PO TID 12/13/18 Naloxone HCl [Narcan] 1 spray IH PRN 12/13/18 This patient is new to me today: No Emergency Visit: No Critical Care patient: No - Discharge Referral Referred to [facility] No"
--- NOTE | 2018-12-14 13:02 | PN ---
Teaching Attending Note Name of Resident: Que Ardon ATTENDING PHYSICIAN STATEMENT I saw and evaluated the patient. I reviewed the resident's note and discussed the case with the resident. I agree with the resident's findings and plan as documented. SUBJECTIVE: Patient eloped this AM prior to my interview OBJECTIVE: Afebrile, Hemodynamically Stable Last Vital Signs Temp Pulse Resp BP Pulse Ox 97.5 F L 65 18 155/80 99 12/13/18 20:45 12/13/18 20:45 12/13/18 20:45 12/13/18 20:45 12/14/18 04:00 Unable to perform physical exam as he eloped prior to rounds. ASSESSMENT/PLAN 48 year old male with with history of Polysubstance abuse (benzodiazepines, cocaine), CAD s/p [place] s/p PCI/Stent x 2, Hx of CVA, HTN, HLD, OA, Chronic Back Pain, Nephrolithiasis, Migraines, presents with L sided chest pain, radiating down L arm with associated nausea, diaphoresis - no vomiting or shortness of breath. 1. Chest Pain in context of cocaine use History of CAD s/p PCI/Stent x 2. ECG - SR, no acute changes Troponin neg x 2 Utox positive for cocaine and benzos Echo - essentially normal. Evaluated by Cardiology - declined Exercise Stress Test 12/13, now eloped. Previously advised to continue Aspirin. No BB given positive cocaine toxicology. 2. History of Migraines - claims to be on Fioricet q4h but has no out-patient prescription. High suspicion of barbituate seeking. 3. Microcytic Anemia Ferritin 4 No history of acute/chronic GI blood loss. Will need out-patient work-up. Refused IV Venofer - will send Ferrous Sulfate to patient's pharmacy 4. HLD - Continue Atorvastatin 5. HTN - Normally on Metoprolol - held in context of active cocaine use. 6. History of Polysubstance abuse including cocaine - declined outpatient rehab offer by Addiction Medicine physician.
== END 2018-12-14 10:59 | disposition left against medical advice (07) ==
LOC: JER 21:23 → JERBED 12-12 01:43 → J4W 12-12 09:53
PROVIDERS: ADMIT Internal Medicine
PROC: 3E033NZ Introduction of Analgesics, Hypnotics, Sedatives into Peripheral Vein, Percutaneous Approach (ICD-10-PCS; principal; 2018-12-12)
DX: R07.89 Other chest pain (principal); F14.20 Cocaine dependence, uncomplicated; F17.210 Nicotine dependence, cigarettes, uncomplicated; F19.10 Other psychoactive substance abuse, uncomplicated; G43.909 Migraine, unspecified, not intractable, without status migrainosus; D50.9 Iron deficiency anemia, unspecified; I10 Essential (primary) hypertension; E78.5 Hyperlipidemia, unspecified; I25.10 Atherosclerotic heart disease of native coronary artery without angina pectoris; I25.2 Old myocardial infarction; M54.5 Low back pain; G89.29 Other chronic pain; E66.9 Obesity, unspecified; Z68.32 Body mass index [BMI] 32.0-32.9, adult; Z87.442 Personal history of urinary calculi; Z95.5 Presence of coronary angioplasty implant and graft; Z86.73 Personal history of transient ischemic attack (TIA), and cerebral infarction without residual deficits
CPT/HCPCS: 36415; 71046-TC-FY; 80048; 80053; 80307; 82550; 82728; 83735; 84100; 84484; 85025; 85044; 85610; 93005; 93010; 93306-TC; 96374; 96375; 96376; 99284-25; G0378; J0131

== ENCOUNTER 2018-12-30 09:41 | Inpatient (IN) | payer SELFPAY ==
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
[2018-12-30] MEDS ORDERED: MAG HYDROX/AL HYDROX/SIMETH 30 ML UNIT-DOSE CUP PO PRN (11:11)
[2018-12-30] MEDS ORDERED: METHOCARBAMOL 500 MG TABLET PO PRN (11:11)
[2018-12-30] MEDS ORDERED: ACETAMINOPHEN 325 MG TABLET (FP) PO PRN ×2 (11:11)
[2018-12-30] MEDS ORDERED: BISMUTH SUBSALICYLATE 262 MG/15 ML BTL PO PRN (11:11)
[2018-12-30] MEDS ORDERED: hydrOXYzine PAMOATE 25 MG CAPSULE (FP) PO PRN (11:11)
[2018-12-30] MEDS ORDERED: MENTHOL/PHENOL 1 EACH UD MM PRN (11:11)
[2018-12-30] MEDS ORDERED: MAGNESIUM CITRATE 300 ML BOTTLE PO PRN (11:11)
[2018-12-30] MEDS ORDERED: NICOTINE POLACRILEX 2 MG GUM BUC PRN (11:11)
[2018-12-30] MEDS ORDERED: cloNIDine HCL 0.1 MG TABLET PO PRN (11:11)
[2018-12-30] MEDS ORDERED: MAGNESIUM HYDROX 2400MG/30ML ORAL SUSPENSION 30 ML CUP PO PRN (11:11)
[2018-12-30] MEDS ORDERED: MELATONIN 5 MG TABLETS PO PRN (11:11)
[2018-12-30] MEDS: diazePAM 5 MG TABLET PO PRN (13:15)
[2018-12-30] MEDS: GABAPENTIN 300 MG CAPSULE (FP) PO SCH ×2 (13:15→22:14)
[2018-12-30] MEDS ORDERED: PATIENT'S OWN MEDICATION (NON-FORMULARY) (Butalb/Acetaminophen/Caffeine [Fioricet 50-300-4 PO SCH (14:00)
[2018-12-30] MEDS: METOPROLOL TARTRATE 25 MG TABLET (FP) PO SCH (22:14)
[2018-12-30] MEDS: diazePAM 5 MG TABLET PO SCH (22:14)
[2018-12-30] MEDS: ATORVASTATIN CA 20 MG TABLET (FP) PO SCH (22:15)
[2018-12-30] MEDS: THIAMINE HCL 100 MG TABLET (FP) PO SCH (22:15)
[2018-12-30] MEDS ORDERED: METHADONE HCL 10 MG TABLET (FOR DETOX USE ONLY) PO ONE (23:00)
[2018-12-31] MEDS: GABAPENTIN 300 MG CAPSULE (FP) PO SCH ×3 (05:12→22:02)
[2018-12-31] MEDS: diazePAM 5 MG TABLET PO SCH ×3 (05:12→22:02)
[2018-12-31] MEDS ORDERED: METHADONE HCL 5 MG TABLET (FOR DETOX USE ONLY) PO ONE (10:00)
[2018-12-31] MEDS: PRENATAL VITAMINS W/ FOLIC ACID TABLET (FP) PO SCH (10:12)
[2018-12-31] MEDS: ASPIRIN COATED 81 MG TABLET.EC PO SCH (10:12)
[2018-12-31] MEDS: METOPROLOL TARTRATE 25 MG TABLET (FP) PO SCH ×2 (10:12→22:02)
[2018-12-31] MEDS: CLOPIDOGREL BISULFATE 75 MG TABLET (FP) PO SCH (10:12)
[2018-12-31] MEDS: diazePAM 5 MG TABLET PO PRN ×2 (10:15→17:48)
--- NOTE | 2018-12-31 15:17 | PN ---
S CIWA - CIWA Score Nausea/Vomitin-No Nausea/No Vomiting Muscle Tremors: None Anxiety: 4-Mod. Anxious/Guarded Agitation: 3 Paroxysmal Sweats: 2 Orientation: 0-Oriented Tacttile Disturbances: 1-Very Mild Itch/Numbness Auditory Disturbances: 1-Very Mild Visual Disturbances: 0-None Headache: 3-Moderate CIWA-Ar Total Score: 14 BHS COWS - Scale Resting Pulse: 0= [place] 80 or Below Sweatin= Chills/Flushing Restless Observation: 0= Sits Still Pupil Size: 0= Normal to Room Light Bone or Joint Aches: 0= None Runny Nose/ Eye Tearin= Nasal Congestion GI Upset > 30mins: 0= None Tremor Observation of Outstretched Hands: 0= None Yawning Observation: 1= 1-2x During Session Anxiety or Irritability: 2=Irritable/Anxious Goose Flesh Skin: 3=Piloerection COWS Score: 8 S Progress Note (SOAP) Subjective: H/A, Anxious, Interrupted Sleep. Objective: PATIENT A & O X 3. IN NO ACUTE DISTRESS. 12/31/18 15:21 Vital Signs Temperature 98.4 F 12/31/18 13:38 Pulse Rate 70 12/31/18 13:38 Respiratory Rate 20 12/31/18 13:38 Blood Pressure 119/77 12/31/18 13:38 O2 Sat by Pulse Oximetry (%) ADMISSION LAB RESULTS PENDING. 12/31/18 15:21 Assessment: 12/31/18 15:22 WITHDRAWAL SYMPTOMS. Plan: CONTINUED DETOX. INCREASE DAILY PO FLUID INTAKE.
[2018-12-31] MEDS: THIAMINE HCL 100 MG TABLET (FP) PO SCH (22:02)
[2018-12-31] MEDS: ATORVASTATIN CA 20 MG TABLET (FP) PO SCH (22:02)
[2018-12-31] MEDS: traZODone HCL 50 MG TABLET (FP) PO PRN (22:03)
[2019-01-01] MEDS: diazePAM 5 MG TABLET PO PRN ×2 (05:13→13:04)
[2019-01-01] MEDS: GABAPENTIN 300 MG CAPSULE (FP) PO SCH ×3 (05:14→22:43)
[2019-01-01] MEDS ORDERED: METHADONE HCL 10 MG TABLET (FOR DETOX USE ONLY) PO ONE (10:00)
[2019-01-01 10:16] LABS: ALBUMIN 3.3 g/dl (3.4-5.0); ALK PHOS 161 U/L (45-117); ANION GAP 7 MMOL/L (8-16); BILIRUBIN,TOTAL 0.2 mg/dL (0.2-1); BLOOD UREA NITROGEN 8 mg/dL (7-18); CHLORIDE 102 mmol/L (98-107); CO2 30 mmol/L (21-32); CREATININE 0.6 mg/dL (0.55-1.3); GLUCOSE,RANDOM 114 mg/dL (74-106); SGOT/AST 7 U/L (15-37); SGPT/ALT 18 U/L (13-61); SODIUM 138 mmol/L (136-145); TOT PROT 6.8 g/dl (6.4-8.2)
[2019-01-01 10:26] LABS: BASO % 0.6 % (0-2.0); EOS % 9.2 % (0-4.5); HEMATOCRIT 35.8 % (35.4-49); HEMOGLOBIN 11.1 GM/dL (11.7-16.9); LYMPH % 29.3 % (8-40); MCH 23.5 pg (25.7-33.7); MEAN PLT VOLUME 8.6 fl (7.5-11.1); MONO % 6.9 % (3.8-10.2); PLATELET COUNT 278 K/MM3 (134-434); RBC 4.72 M/mm3 (4.00-5.60); RDW 18.3 % (11.9-15.9); WHITE BLOOD COUNT 5.2 K/mm3 (4.0-10.0)
[2019-01-01] MEDS: PRENATAL VITAMINS W/ FOLIC ACID TABLET (FP) PO SCH (10:36)
[2019-01-01] MEDS: ASPIRIN COATED 81 MG TABLET.EC PO SCH (10:36)
[2019-01-01] MEDS: CLOPIDOGREL BISULFATE 75 MG TABLET (FP) PO SCH (10:36)
[2019-01-01] MEDS: diazePAM 5 MG TABLET PO SCH ×2 (10:36→22:42)
[2019-01-01] MEDS: METOPROLOL TARTRATE 25 MG TABLET (FP) PO SCH ×2 (10:36→22:43)
[2019-01-01] MEDS ORDERED: guaiFENesin 200 MG/10 ML 10 ML UNIT-DOSE CUPS PO PRN (10:43)
--- NOTE | 2019-01-01 13:50 | PN ---
[facility] CIWA - CIWA Score Nausea/Vomitin-No Nausea/No Vomiting Muscle Tremors: None Anxiety: 4-Mod. Anxious/Guarded Agitation: 2 Paroxysmal Sweats: No Perspiration Orientation: 0-Oriented Tacttile Disturbances: 0-None Auditory Disturbances: 0-None Visual Disturbances: 2-Mild Sensitivity Headache: 3-Moderate CIWA-Ar Total Score: 11 S COWS - Scale Resting Pulse: 1= [place] 81-100 Sweatin= Chills/Flushing Restless Observation: 1= Difficult to Sit Still Pupil Size: 0= Normal to Room Light Bone or Joint Aches: 0= None Runny Nose/ Eye Tearin= Runny Nose/Eyes GI Upset > 30mins: 0= None Tremor Observation of Outstretched Hands: 0= None Yawning Observation: 1= 1-2x During Session Anxiety or Irritability: 2=Irritable/Anxious Goose Flesh Skin: 3=Piloerection COWS Score: 11 S Progress Note (SOAP) Subjective: Anxious, H/A, Nasal Congestion, Interrupted Sleep. Objective: PATIENT A & O X 3, OBSERVED AMBULATING ON UNIT. IN NO ACUTE DISTRESS. 01/01/19 13:47 Vital Signs Temperature 96.8 F L 01/01/19 13:13 Pulse Rate 81 01/01/19 13:13 Respiratory Rate 18 01/01/19 13:13 Blood Pressure 126/79 01/01/19 13:13 O2 Sat by Pulse Oximetry (%) Laboratory Tests 01/01/19 01/01/19 01/01/19 07:45 07:45 07:45 WBC 5.2 RBC 4.72 Hgb 11.1 L Hct 35.8 MCV 76.0 L MCH 23.5 L MCHC 31.0 L RDW 18.3 H Plt Count 278 MPV 8.6 Absolute Neuts (auto) 2.8 Neutrophils % 54.0 Lymphocytes % 29.3 D Monocytes % 6.9 Eosinophils % 9.2 H Basophils % 0.6 Nucleated RBC % 0 Sodium 138 Potassium 4.0 Chloride 102 Carbon Dioxide 30 Anion Gap 7 L BUN 8 Creatinine 0.6 Creat Clearance w eGFR 143.80 Random Glucose 114 H Calcium 9.0 Total Bilirubin 0.2 AST 7 L ALT 18 Alkaline Phosphatase 161 H Total Protein 6.8 Albumin 3.3 L RPR Titer Nonreactive LABS NOTED. Assessment: 01/01/19 13:49 WITHDRAWAL SYMPTOMS. ELEVATED ALKALINE PHOSPHATASE LEVEL. 01/01/19 13:49 Plan: CONTINUE DETOX.
[2019-01-01] MEDS: ATORVASTATIN CA 20 MG TABLET (FP) PO SCH (22:42)
[2019-01-01] MEDS: THIAMINE HCL 100 MG TABLET (FP) PO SCH (22:43)
[2019-01-01] MEDS: traZODone HCL 50 MG TABLET (FP) PO PRN (22:46)
[2019-01-02] MEDS: GABAPENTIN 300 MG CAPSULE (FP) PO SCH (05:48)
[2019-01-02 05:54] VITALS: TEMP 97.7
[2019-01-02] MEDS ORDERED: METHADONE HCL 5 MG TABLET (FOR DETOX USE ONLY) PO ONE (06:00)
[2019-01-02] MEDS ORDERED: diazePAM 5 MG TABLET PO SCH (06:00)
--- NOTE | 2019-01-02 09:03 | DS ---
[facility] Detox Discharge Summary Admission Date: 12/30/18 Discharge Date: 01/02/19 - History Present History: Alcohol Dependence, Opioid Dependence, Sedative Dependence Additional Comments: 48 years old male admitted on 12/30/18 for alcohol benzo and opiate withdrawal stabilization completed detox regimen [facility] Pertinent Past History: keep medication list in wallet bring in medication list and lab report to aftercare appointment medication adherence - Physical Exam Results Vital Signs: Vital Signs Temperature 97.7 F 01/02/19 05:54 Pulse Rate 68 01/02/19 05:54 Respiratory Rate 18 01/02/19 06:30 Blood Pressure 104/63 01/02/19 05:54 O2 Sat by Pulse Oximetry (%) Pertinent Admission Physical Exam Findings: alcohol benzo opiate withdrawal sx Laboratory Last Values WBC 5.2 K/mm3 (4.0-10.0) 01/01/19 07:45 RBC 4.72 M/mm3 (4.00-5.60) 01/01/19 07:45 Hgb 11.1 GM/dL (11.7-16.9) L 01/01/19 07:45 Hct 35.8 % (35.4-49) 01/01/19 07:45 MCV 76.0 fl (80-96) L 01/01/19 07:45 MCH 23.5 pg (25.7-33.7) L 01/01/19 07:45 MCHC 31.0 g/dl (32.0-35.9) L 01/01/19 07:45 RDW 18.3 % (11.9-15.9) H 01/01/19 07:45 Plt Count 278 K/MM3 (134-434) 01/01/19 07:45 MPV 8.6 fl (7.5-11.1) 01/01/19 07:45 Absolute Neuts (auto) 2.8 K/mm3 (1.5-8.0) 01/01/19 07:45 Neutrophils % 54.0 % (42.8-82.8) 01/01/19 07:45 Lymphocytes % 29.3 % (8-40) D 01/01/19 07:45 Monocytes % 6.9 % (3.8-10.2) 01/01/19 07:45 Eosinophils % 9.2 % (0-4.5) H 01/01/19 07:45 Basophils % 0.6 % (0-2.0) 01/01/19 07:45 Nucleated RBC % 0 % (0-0) 01/01/19 07:45 Sodium 138 mmol/L (136-145) 01/01/19 07:45 Potassium 4.0 mmol/L (3.5-5.1) 01/01/19 07:45 Chloride 102 mmol/L (98-107) 01/01/19 07:45 Carbon Dioxide 30 mmol/L (21-32) 01/01/19 07:45 Anion Gap 7 MMOL/L (8-16) L 01/01/19 07:45 BUN 8 mg/dL (7-18) 01/01/19 07:45 Creatinine 0.6 mg/dL (0.55-1.3) 01/01/19 07:45 Creat Clearance w eGFR 143.80 (>60) 01/01/19 07:45 Random Glucose 114 mg/dL (74-106) H 01/01/19 07:45 Calcium 9.0 mg/dL (8.5-10.1) 01/01/19 07:45 Total Bilirubin 0.2 mg/dL (0.2-1) 01/01/19 07:45 AST 7 U/L (15-37) L 01/01/19 07:45 ALT 18 U/L (13-61) 01/01/19 07:45 Alkaline Phosphatase 161 U/L (45-117) H 01/01/19 07:45 Total Protein 6.8 g/dl (6.4-8.2) 01/01/19 07:45 Albumin 3.3 g/dl (3.4-5.0) L 01/01/19 07:45 RPR Titer Nonreactive (NONREACTIVE) 01/01/19 07:45 lab noted - Treatment Hospital Course: Detox Protocol Followed, Detoxed Safely, Responded well, Discharged Condition Good, Rehab Referral Accepted Patient has Accepted a Rehab Referral to: [facility] - Medication Discharge Medications: Ambulatory Orders Butalb/Acetaminophen/Caffeine [Fioricet 50-300-40 mg Capsule] 1 each PO QID #20 capsule 11/02/16 Clopidogrel Bisulfate [Plavix -] 75 mg PO DAILY 11/02/16 Simvastatin [Zocor -] 40 mg PO HS 11/02/16 Aspirin [Adult Aspirin] 81 mg PO DAILY 12/13/18 Gabapentin 600 mg PO TID 12/13/18 Ferrous Sulfate [Feosol] 325 mg PO BID #60 tablet 12/14/18 Metoprolol Tartrate [Lopressor -] 25 mg PO BID 12/30/18 - Diagnosis (1) Alcohol dependence with uncomplicated withdrawal Current Visit: Yes Status: Acute (2) Opioid dependence with withdrawal Current Visit: Yes Status: Acute (3) Nicotine dependence Current Visit: Yes Status: Acute Qualifiers: Nicotine product type: cigarettes Substance use status: in withdrawal Qualified Code(s): F17.213 - Nicotine dependence, cigarettes, with withdrawal (4) Uncomplicated sedative, hypnotic, or anxiolytic withdrawal Current Visit: Yes Status: Acute (5) HTN (hypertension) Current Visit: Yes Status: Chronic Qualifiers: Hypertension type: essential hypertension Qualified Code(s): I10 - Essential (primary) hypertension (6) Old OK (myocardial infarction) Current Visit: Yes Status: Chronic - AMA Did Patient Leave Against Medical Advice: No
[2019-01-02 09:38] VITALS: BP 94/57; PULSE 75
== END 2019-01-02 10:45 | disposition home or self-care (01) | DRG 773 ==
LOC: YASAS 09:41 → Y3N 12:17
PROVIDERS: ADMIT Surgery; ATTEND Surgery
PROC: HZ2ZZZZ Detoxification Services for Substance Abuse Treatment (ICD-10-PCS; principal; 2018-12-30)
DX: F11.23 Opioid dependence with withdrawal (principal); F10.230 Alcohol dependence with withdrawal, uncomplicated; F13.230 Sedative, hypnotic or anxiolytic dependence with withdrawal, uncomplicated; F17.210 Nicotine dependence, cigarettes, uncomplicated; I25.10 Atherosclerotic heart disease of native coronary artery without angina pectoris; I10 Essential (primary) hypertension; Z95.5 Presence of coronary angioplasty implant and graft; I25.2 Old myocardial infarction; R94.5 Abnormal results of liver function studies; E78.00 Pure hypercholesterolemia, unspecified; Z79.01 Long term (current) use of anticoagulants
CPT/HCPCS: 36415; 80053; 85025; 86593

== ENCOUNTER 2019-03-18 08:45 | Inpatient (IN) | payer OTHER ==
[2019-03-18 11:24] VITALS: BMI 30.7
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
[2019-03-18] MEDS ORDERED: PATIENT'S OWN MEDICATION (NON-FORMULARY) (Butalb/Acetaminophen/Caffeine [Fioricet 50-300-4 PO PRN (12:26)
[2019-03-18] MEDS ORDERED: MAGNESIUM CITRATE 300 ML BOTTLE PO PRN (12:27)
[2019-03-18] MEDS ORDERED: MAG HYDROX/AL HYDROX/SIMETH 30 ML UNIT-DOSE CUP PO PRN (12:27)
[2019-03-18] MEDS ORDERED: MENTHOL/PHENOL 1 EACH UD MM PRN (12:27)
[2019-03-18] MEDS ORDERED: BISMUTH SUBSALICYLATE 262 MG/15 ML BTL PO PRN (12:27)
[2019-03-18] MEDS ORDERED: hydrOXYzine PAMOATE 25 MG CAPSULE (FP) PO PRN (12:27)
[2019-03-18] MEDS ORDERED: NICOTINE POLACRILEX 2 MG GUM BUC PRN (12:27)
[2019-03-18] MEDS ORDERED: MAGNESIUM HYDROX 2400MG/30ML ORAL SUSPENSION 30 ML CUP PO PRN (12:27)
[2019-03-18] MEDS ORDERED: ACETAMINOPHEN 325 MG TABLET (FP) PO PRN ×2 (12:27)
[2019-03-18] MEDS ORDERED: cloNIDine HCL 0.1 MG TABLET PO PRN (12:30)
[2019-03-18] MEDS: GABAPENTIN 300 MG CAPSULE (FP) PO SCH ×2 (14:34→22:20)
[2019-03-18] MEDS: diazePAM 5 MG TABLET PO SCH ×2 (14:34→22:20)
[2019-03-18 16:05] LABS: HEMATOCRIT 37.6 % (35.4-49); HEMOGLOBIN 11.9 GM/dL (11.7-16.9); MCH 24.6 pg (25.7-33.7); MCHC 31.8 g/dl (32.0-35.9); MEAN CELL VOLUME 77.4 fl (80-96); MEAN PLT VOLUME 8.9 fl (7.5-11.1); PLATELET COUNT 312 K/MM3 (134-434); RBC 4.86 M/mm3 (4.00-5.60); RDW 20.2 % (11.9-15.9); WHITE BLOOD COUNT 5.9 K/mm3 (4.0-10.0)
[2019-03-18 16:22] LABS: ALBUMIN 3.9 g/dl (3.4-5.0); BILIRUBIN,TOTAL 0.2 mg/dL (0.2-1); BLOOD UREA NITROGEN 10.4 mg/dL (7-18); CREATININE 0.8 mg/dL (0.55-1.3); POTASSIUM 3.7 mmol/L (3.5-5.1); TOT PROT 7.3 g/dl (6.4-8.2)
[2019-03-18] MEDS: diazePAM 5 MG TABLET PO PRN (18:53)
[2019-03-18] MEDS: FERROUS SO4 325 MG TABLET (FP) PO SCH (22:20)
[2019-03-18] MEDS: ATORVASTATIN CA 20 MG TABLET (FP) PO SCH (22:20)
[2019-03-18] MEDS: THIAMINE HCL 100 MG TABLET (FP) PO SCH (22:20)
[2019-03-18] MEDS: METOPROLOL TARTRATE 25 MG TABLET (FP) PO SCH (22:21)
[2019-03-18] MEDS: MELATONIN 5 MG TABLETS PO PRN (22:22)
[2019-03-18] MEDS ORDERED: METHADONE HCL 10 MG TABLET (FOR DETOX USE ONLY) PO ONE (23:00)
[2019-03-19] MEDS: GABAPENTIN 300 MG CAPSULE (FP) PO SCH ×3 (05:48→22:06)
[2019-03-19] MEDS: diazePAM 5 MG TABLET PO SCH ×3 (05:48→22:06)
--- NOTE | 2019-03-19 09:24 | PN ---
[facility] CIWA - CIWA Score Nausea/Vomitin-No Nausea/No Vomiting Muscle Tremors: 3 Anxiety: 2 Agitation: 2 Paroxysmal Sweats: 3 Orientation: 0-Oriented Tacttile Disturbances: 0-None Auditory Disturbances: 0-None Visual Disturbances: 0-None Headache: 2-Mild CIWA-Ar Total Score: 12 S COWS - Scale Resting Pulse: 0= [place] 80 or Below Sweatin= Chills/Flushing Restless Observation: 0= Sits Still Pupil Size: 0= Normal to Room Light Bone or Joint Aches: 1= Mild Discomfort Runny Nose/ Eye Tearin= Nasal Congestion GI Upset > 30mins: 0= None Tremor Observation of Outstretched Hands: 2= Slight Tremor Visible Yawning Observation: 1= 1-2x During Session Anxiety or Irritability: 1=Feels Anxious/Irritable Goose Flesh Skin: 0=Smooth Skin COWS Score: 7 S Progress Note (SOAP) Subjective: c/o sweats, headache, irritability and anxiety. Objective: 03/19/19 09:21 Vital Signs 03/19/19 03/19/19 03/19/19 03:30 06:16 06:30 Temperature 96.9 F L Pulse Rate 50 L Respiratory 18 20 18 Rate Blood Pressure 108/65 Lab Results WBC 5.9 K/mm3 (4.0-10.0) 03/18/19 13:50 RBC 4.86 M/mm3 (4.00-5.60) 03/18/19 13:50 Hgb 11.9 GM/dL (11.7-16.9) 03/18/19 13:50 Hct 37.6 % (35.4-49) 03/18/19 13:50 MCV 77.4 fl (80-96) L 03/18/19 13:50 MCHC 31.8 g/dl (32.0-35.9) L 03/18/19 13:50 RDW 20.2 % (11.9-15.9) H 03/18/19 13:50 Plt Count 312 K/MM3 (134-434) 03/18/19 13:50 Sodium 142 mmol/L (136-145) 03/18/19 13:50 Potassium 3.7 mmol/L (3.5-5.1) 03/18/19 13:50 Chloride 105 mmol/L (98-107) 03/18/19 13:50 Carbon Dioxide 29 mmol/L (21-32) 03/18/19 13:50 Anion Gap 9 MMOL/L (8-16) 03/18/19 13:50 BUN 10.4 mg/dL (7-18) 03/18/19 13:50 Creatinine 0.8 mg/dL (0.55-1.3) 03/18/19 13:50 Random Glucose 76 mg/dL (74-106) 03/18/19 13:50 Calcium 9.0 mg/dL (8.5-10.1) 03/18/19 13:50 Labs noted. Assessment: 03/19/19 09:22 AOX3, in no acute distress. Full rom, ambulates in the unit. withdrawal signs Plan: continue detox increase fluids.
[2019-03-19] MEDS ORDERED: METHADONE HCL 5 MG TABLET (FOR DETOX USE ONLY) PO ONE (10:00)
[2019-03-19] MEDS: PRENATAL VITAMINS W/ FOLIC ACID TABLET (FP) PO SCH (10:10)
[2019-03-19] MEDS: ASPIRIN COATED 81 MG TABLET.EC PO SCH (10:10)
[2019-03-19] MEDS: CLOPIDOGREL BISULFATE 75 MG TABLET (FP) PO SCH (10:11)
[2019-03-19] MEDS: diazePAM 5 MG TABLET PO PRN ×2 (10:13→18:01)
[2019-03-19] MEDS: FERROUS SO4 325 MG TABLET (FP) PO SCH ×2 (11:42→22:06)
[2019-03-19] MEDS: METOPROLOL TARTRATE 25 MG TABLET (FP) PO SCH ×2 (11:42→22:07)
[2019-03-19] MEDS: THIAMINE HCL 100 MG TABLET (FP) PO SCH (22:06)
[2019-03-19] MEDS: ATORVASTATIN CA 20 MG TABLET (FP) PO SCH (22:06)
[2019-03-19] MEDS: MELATONIN 5 MG TABLETS PO PRN (22:08)
[2019-03-20] MEDS ORDERED: diazePAM 5 MG TABLET PO ONE (06:00)
[2019-03-20] MEDS: GABAPENTIN 300 MG CAPSULE (FP) PO SCH ×3 (07:04→21:46)
[2019-03-20] MEDS ORDERED: METHADONE HCL 10 MG TABLET (FOR DETOX USE ONLY) PO ONE (10:00)
[2019-03-20] MEDS: ASPIRIN COATED 81 MG TABLET.EC PO SCH (10:06)
[2019-03-20] MEDS: FERROUS SO4 325 MG TABLET (FP) PO SCH ×2 (10:06→21:46)
[2019-03-20] MEDS: PRENATAL VITAMINS W/ FOLIC ACID TABLET (FP) PO SCH (10:06)
[2019-03-20] MEDS: CLOPIDOGREL BISULFATE 75 MG TABLET (FP) PO SCH (10:06)
[2019-03-20] MEDS: diazePAM 5 MG TABLET PO PRN ×3 (11:16→21:47)
--- NOTE | 2019-03-20 11:25 | PN ---
S CIWA - CIWA Score Nausea/Vomitin-Mild Nausea/No Vomiting Muscle Tremors: 3 Anxiety: 3 Agitation: 2 Paroxysmal Sweats: 1-Minimal Palms Moist Orientation: 0-Oriented Tacttile Disturbances: 0-None Auditory Disturbances: 0-None Visual Disturbances: 0-None Headache: 2-Mild CIWA-Ar Total Score: 12 BHS COWS - Scale Resting Pulse: 0= [place] 80 or Below Sweatin= Chills/Flushing Restless Observation: 1= Difficult to Sit Still Pupil Size: 1= Pupils >than Normal Bone or Joint Aches: 2= Severe Diffuse Aches Runny Nose/ Eye Tearin= Nasal Congestion GI Upset > 30mins: 1= Stomach Cramp Tremor Observation of Outstretched Hands: 2= Slight Tremor Visible Yawning Observation: 0= None Anxiety or Irritability: 2=Irritable/Anxious Goose Flesh Skin: 0=Smooth Skin COWS Score: 11 S Progress Note (SOAP) Subjective: DISCOMFORT, POOR SLEEP, ANXIETY, HEADACHES Objective: 03/20/19 11:23 Laboratory Tests 03/18/19 03/18/19 03/18/19 13:50 13:50 13:50 WBC 5.9 RBC 4.86 Hgb 11.9 Hct 37.6 MCV 77.4 L MCH 24.6 L MCHC 31.8 L RDW 20.2 H Plt Count 312 MPV 8.9 Sodium 142 Potassium 3.7 Chloride 105 Carbon Dioxide 29 Anion Gap 9 BUN 10.4 Creatinine 0.8 Est GFR (CKD-EPI)AfAm 122.43 Est GFR (CKD-EPI)NonAf 105.63 Random Glucose 76 Calcium 9.0 Total Bilirubin 0.2 AST 16 ALT 27 Alkaline Phosphatase 175 H Total Protein 7.3 Albumin 3.9 RPR Titer Nonreactive Laboratory Tests 03/18/19 03/18/19 03/18/19 13:50 13:50 13:50 WBC 5.9 RBC 4.86 Hgb 11.9 Hct 37.6 MCV 77.4 L MCH 24.6 L MCHC 31.8 L RDW 20.2 H Plt Count 312 MPV 8.9 Sodium 142 Potassium 3.7 Chloride 105 Carbon Dioxide 29 Anion Gap 9 BUN 10.4 Creatinine 0.8 Est GFR (CKD-EPI)AfAm 122.43 Est GFR (CKD-EPI)NonAf 105.63 Random Glucose 76 Calcium 9.0 Total Bilirubin 0.2 AST 16 ALT 27 Alkaline Phosphatase 175 H Total Protein 7.3 Albumin 3.9 RPR Titer Nonreactive Vital Signs - 24 hr 03/19/19 03/19/19 03/19/19 13:32 17:29 21:49 Temperature 96.1 F L 97.0 F L 97 F L Pulse Rate 56 L 70 58 L Respiratory 18 18 18 Rate Blood Pressure 132/77 125/85 134/81 03/20/19 03/20/19 03/20/19 00:29 03:30 06:23 Temperature 97.4 F L Pulse Rate 57 L Respiratory 18 18 18 Rate Blood Pressure 118/64 03/20/19 09:13 Temperature 97.0 F L Pulse Rate 55 L Respiratory 18 Rate Blood Pressure 137/80 03/20/19 11:24 ALERT AMBULATING ORIENTED Assessment: 03/20/19 11:24 ACUTE WITHDRAWAL Plan: CONTINUE DETOX PROTOCOL
[2019-03-20] MEDS: METOPROLOL TARTRATE 25 MG TABLET (FP) PO SCH ×2 (13:08→21:52)
[2019-03-20] MEDS: METHOCARBAMOL 500 MG TABLET PO SCH ×3 (13:08→21:46)
[2019-03-20] MEDS: THIAMINE HCL 100 MG TABLET (FP) PO SCH (21:46)
[2019-03-20] MEDS: ATORVASTATIN CA 20 MG TABLET (FP) PO SCH (21:52)
[2019-03-21] MEDS: GABAPENTIN 300 MG CAPSULE (FP) PO SCH (05:39)
[2019-03-21] MEDS: diazePAM 5 MG TABLET PO PRN ×2 (05:39→10:19)
[2019-03-21] MEDS ORDERED: METHADONE HCL 5 MG TABLET (FOR DETOX USE ONLY) PO ONE (06:00)
[2019-03-21 09:10] VITALS: BP 115/62; PULSE 72; TEMP 97
[2019-03-21] MEDS: CLOPIDOGREL BISULFATE 75 MG TABLET (FP) PO SCH (10:15)
[2019-03-21] MEDS: PRENATAL VITAMINS W/ FOLIC ACID TABLET (FP) PO SCH (10:15)
[2019-03-21] MEDS: ASPIRIN COATED 81 MG TABLET.EC PO SCH (10:15)
[2019-03-21] MEDS: FERROUS SO4 325 MG TABLET (FP) PO SCH (10:15)
[2019-03-21] MEDS: METHOCARBAMOL 500 MG TABLET PO SCH (10:16)
[2019-03-21] MEDS: METOPROLOL TARTRATE 25 MG TABLET (FP) PO SCH (10:16)
--- NOTE | 2019-03-21 21:53 | DS ---
[facility] Detox Discharge Summary Admission Date: 03/18/19 Discharge Date: 03/21/19 - History Present History: Alcohol Dependence, Opioid Dependence, Sedative Dependence Additional Comments: PATIENT GOING HOME, REFERRED TO THE [facility] ([place], [place]) FOR AFTERCARE. PATIENT DECLINED OFFER OF MEDICATION PRESCRIPTION FOR HOME MEDICATION AT TIME OF DISCHARGE FROM DETOX, NOTING THAT HE CURRENTLY HAS ADEQUATE SUPPLIES OF ALL PRESCRIBED HOME MEDICATIONS AT HOME. PATIENT WAS DISCHARGED FROM DETOX UNIT IN STABLE MEDICAL CONDITION. Pertinent Past History: HTN, Hypercholesterolemia, History Of CVA, Nicotine Dependence, History Of MT With Subsequent Cardiac Stenting. - Physical Exam Results Vital Signs: Vital Signs Temperature 97.0 F L 03/21/19 09:09 Pulse Rate 72 03/21/19 09:09 Respiratory Rate 18 03/21/19 09:09 Blood Pressure 115/62 03/21/19 09:09 O2 Sat by Pulse Oximetry (%) Pertinent Admission Physical Exam Findings: WITHDRAWAL SYMPTOMS. Laboratory Tests 03/18/19 03/18/19 03/18/19 13:50 13:50 13:50 WBC 5.9 RBC 4.86 Hgb 11.9 Hct 37.6 MCV 77.4 L MCH 24.6 L MCHC 31.8 L RDW 20.2 H Plt Count 312 MPV 8.9 Sodium 142 Potassium 3.7 Chloride 105 Carbon Dioxide 29 Anion Gap 9 BUN 10.4 Creatinine 0.8 Est GFR (CKD-EPI)AfAm 122.43 Est GFR (CKD-EPI)NonAf 105.63 Random Glucose 76 Calcium 9.0 Total Bilirubin 0.2 AST 16 ALT 27 Alkaline Phosphatase 175 H Total Protein 7.3 Albumin 3.9 RPR Titer Nonreactive LABS NOTED. - Treatment Hospital Course: Detox Protocol Followed, Detoxed Safely, Responded well, Discharged Condition Good Patient has Accepted a Rehab Referral to: PATIENT REFERRED TO THE [facility] ([place], [place]) - Medication Discharge Medications: Ambulatory Orders Clopidogrel Bisulfate [Plavix -] 75 mg PO DAILY 11/02/16 Simvastatin [Zocor -] 40 mg PO HS 11/02/16 Aspirin [Adult Aspirin] 81 mg PO DAILY 12/13/18 Gabapentin 600 mg PO TID 12/13/18 Ferrous Sulfate [Feosol] 325 mg PO BID #60 tablet 12/14/18 Metoprolol Tartrate [Lopressor -] 25 mg PO BID 12/30/18 - Diagnosis (1) Alcohol dependence with uncomplicated withdrawal Status: Acute (2) Uncomplicated sedative, hypnotic, or anxiolytic withdrawal Status: Acute (3) Nicotine dependence Status: Chronic Qualifiers: Nicotine product type: cigarettes Substance use status: uncomplicated Qualified Code(s): F17.210 - Nicotine dependence, cigarettes, uncomplicated (4) Opioid dependence with withdrawal Status: Acute - AMA Did Patient Leave Against Medical Advice: No
== END 2019-03-21 12:41 | disposition home or self-care (01) | DRG 773 ==
LOC: YASAS 08:45 → Y3N 12:45
PROVIDERS: ADMIT Surgery; ATTEND Surgery
PROC: HZ2ZZZZ Detoxification Services for Substance Abuse Treatment (ICD-10-PCS; principal; 2019-03-18)
DX: F10.230 Alcohol dependence with withdrawal, uncomplicated (principal); F11.23 Opioid dependence with withdrawal; F13.230 Sedative, hypnotic or anxiolytic dependence with withdrawal, uncomplicated; F17.210 Nicotine dependence, cigarettes, uncomplicated; I25.10 Atherosclerotic heart disease of native coronary artery without angina pectoris; I10 Essential (primary) hypertension; Z95.5 Presence of coronary angioplasty implant and graft; E78.00 Pure hypercholesterolemia, unspecified; Z86.73 Personal history of transient ischemic attack (TIA), and cerebral infarction without residual deficits
CPT/HCPCS: 36415; 80053; 85027; 86593